=== PATIENT | male | born 1955 | race Caucasian/White ===

== ENCOUNTER → 2018-03-16 08:07 | Outpatient (CLI) | payer BC, SELFPAY ==
--- NOTE | 2018-03-16 08:11 | RAD_ITS ---
STUDY: X-RAY - PELVIS AND LEFT HIP REASON FOR EXAM: Male, 62 years old. Hip pain. TECHNIQUE: Radiological exam, hip, unilateral, with pelvis when performed; 2 or 3 views. COMPARISON: None. FINDINGS: There is a non-specific bowel gas pattern. Normal visualized soft tissue structures. Normal bilateral iliac wings, sacroiliac joints and visualized sacrum. Normal bilateral superior and inferior pubic rami. There are degenerative changes of the pubic symphysis with sclerosis. Normal bilateral ischial tuberosities. There are mild degenerative changes of the hips bilaterally. RAD/HIP, UNI W/ Pelvis 2-3 Views IMPRESSION: Degenerative changes. Electronically Signed: Karma Morrell MD at 23:25 EDT Tel , Service support ,
--- NOTE | 2018-03-16 08:11 | RAD_ITS ---
STUDY: X-RAY - LUMBAR SPINE REASON FOR EXAM: Male, 62 years old. LBP, no trauma TECHNIQUE: 5 view(s) of the lumbar spine were obtained. COMPARISON: None FINDINGS: Normal lumbar lordosis. There is multilevel endplate spondylosis of the lumbar vertebrae. There is multi-level degenerative disc disease with multi-level disc space narrowing. The soft tissue structures are unremarkable. RAD/L/S Spine Min 4 Views IMPRESSION: Degenerative changes of the spine. Electronically Signed: Ana Rosa Angeles MD at 10:07 EDT Tel , Service support ,
[2018-03-16 10:20] LABS: Absolute Neutrophil Count 3.2 X10^3/uL (2.0-7.7); Basophil# 0.02 X10^3/uL; Basophil% 0.4 % (0-1); Eosinophil# 0.13 X10^3/uL; Eosinophils% 2.3 % (0-5); Hematocrit 44.7 % (40-54); Hemoglobin 14.7 g/dl (13.0-16.5); Lymphocyte % 31.7 % (19-41); Mean Corp Hgb Conc 32.9 g/gl (32-36); Mean Corpuscular Hgb 28.2 pg (27.0-32.0); Mean Corpuscular Volume 85.6 fL (80-94); Monocyte# 0.56 X10^3/uL; Monocyte% 9.9 % (0-10); Neutrophil # 3.16 X10^3/uL (2.7-7.7); Neutrophil % 55.7 % (47-70); Platelet Count 227 K/mm3 (150-450); RBC Distribution Width SD 43.1 fl (35.1-43.9); Red Blood Count 5.22 M/mm3 (4.6-6.2); White Blood Count 5.7 K/mm3 (4.4-11.0)
[2018-03-16 10:22] LABS: POSITIVE COUNT NO; POSITIVE DIFFERENTIAL NO; POSITIVE MORPHOLOGY NO
[2018-03-16 10:25] LABS: Color, Urine Yellow (Yellow); Glucose, Dipstick Normal (Normal); Ketone-Dipstick Negative (Negative); Leukocyte Esterase-Dipstick 25 /ul (Negative); Nitrite-Dipstick Negative (Negative); Occult Blood-Urine 250 /ul (Negative); Protein-Dipstick 100 mg/dl (Negative); Specific Gravity, Urine 1.015 (1.002-1.030); Urine Bilirubin Dipstick Negative (Negative); Urine Clarity Sl. Cloudy (Clear); Urine Urobilinogen Normal (Normal)
[2018-03-16 10:31] LABS: Mucous, Urine 1+ /hpf (<or=2+); Red Blood Cells-Urine 25-50 SEEN /hpf (0-5); White Blood Cells 0-5 SEEN /hpf (0-5)
[2018-03-16 10:32] LABS: Bacteria 1+ /hpf (None Seen); Squamous Epithelial Cells - UA 0-5 SEEN /hpf (0-5)
[2018-03-16 10:35] LABS: AST(SGOT) 20 U/L (15-37); Alanine Aminotransfer ALT/SGPT 28 U/L (16-61); Albumin, Serum 3.6 g/dL (3.2-5.0); Alkaline Phosphatase 150 U/L (45-117); Anion Gap 8 (5-15); BUN 13 mg/dL (7-18); BUN/Creat Ratio 13.8 RATIO (10-20); Calcium,Total 8.6 mg/dL (8.5-10.1); Chloride 105 mmol/L (98-107); Cholesterol 145 mg/dL (200); Creatinine, Serum 0.94 mg/dL (0.70-1.30); EST Glomerular Filtration Rate 87 mL/min (>60); Est Glom Filt Rate - Afr Amer 105 mL/min (>60); Globulin 3.5 g/dL (2.2-4.2); Glucose 95 mg/dL (74-106); High Density Lipoprotein 37 mg/dL; PSA,Total - Annual Screen 1.19 ng/mL (0.00-4.00); Potassium 4.3 mmol/L (3.5-5.1); Protein, Total 7.1 g/dL (6.4-8.2); Sodium Level 137 mmol/L (136-145); Triglycerides 46 mg/dL; Very Low Density Lipoprotein 9 mg/dL (5-40)
== END ==
PROVIDERS: Family Provider Internal Medicine; PCP Internal Medicine; Referring Provider Internal Medicine; Visit Provider Internal Medicine
DX: Z00.00 Encounter for general adult medical examination without abnormal findings (principal); M25.552 Pain in left hip; M54.5 Low back pain; R35.0 Frequency of micturition
CPT/HCPCS: 36415; 72110; 73502; 80053; 80061; 81001; 84153; 85025; G0103

== ENCOUNTER → 2018-03-19 08:16 | Outpatient (CLI) | payer BC, SELFPAY | PROVIDERS: Family Provider Internal Medicine; PCP Internal Medicine; Referring Provider Internal Medicine; Visit Provider Internal Medicine | DX: R31.9 Hematuria, unspecified (principal) | CPT/HCPCS: 87086; 87088 ==

== ENCOUNTER 2018-04-03 07:15 | Day surgery (SDC) | payer BC, SELFPAY ==
[2018-04-03 07:35] VITALS: BP 114/86; PULSE 93; RESP 16; TEMP 36.8; O2SAT 100; BMI 24.7
--- NOTE | 2018-04-03 08:16 | H&P.OPEN ---
History of Present Illness Date of Admission: 04/03/18 The patient is a 62 year old M here for screening colonoscopy. The patient has never had a screening colonoscopy in the past. He reports that his mother had colon cancer in her mid 60s. He is having no abdominal pain or blood in his stool. Past Medical/Surgical History - Planned Operation Planned Operative Procedure/s: cscope open access Date of Operative Procedure: 04/03/18 Permit Signed: No S.O.S: No Is This Patient Having a Total Joint: No - Previous Hospitalizations/Surgeries HX Hospitalizations: No Any Problems With Anesthesia: No You/Your Family Experience Fever (Hyperthermia) With Anes: No Cholinesterase deficiency: No - Cardiovascular Hx Chest Pain within Last 2 months: No Hx of Irregular Heartbeat and/or Afib: No Hx Heart Attack: No Hx Congestive Heart Failure: No Hx Rheumatic Fever: No Hx Hypertension: No Hx Internal Defibrillator: No Hx Pacemaker: No Hx Cardiac Catheterization: No Hx Cardiac Surgery/Stents/Etc.: No Hx Stress Test: No HX Edema: No Hx Pain in Legs when Walking/Leg Cramps: Yes - cramps prn - Respiratory Chronic Cough: No HX of Shortness of Breath: No Hoarseness: No Hx Chronic Obstructive Pulmonary Disease (COPD): No Hx Asthma: No Hx Emphysema: No Hx Sleep Apnea: No Hx Oxygen Use at Home: No Hx Respiratory Tract Infection/Cold (presently): No Do You Snore Loudly (louder than talking or can be heard): No Do You Often Feel Tired/ Fatigued/ Sleepy Dring Daytime?: No Has Anyone Observed You Stop Breathing During Sleep?: No Result (for STOP score): Negative Hx Smoking: Yes - quit 25-30 yrs ago Smoking Status: Former smoker - Gastrointestinal Hx Gastroesophageal Reflux: No Hx Gastrointestinal Disorders: No Hx Gastrointestinal Bleed: No Hx Ulcer: Yes - at age 19 Hx Hiatal Hernia: No Difficulty Chewing/Swallowing: No Recent Onset of Swallowing Problems: No Special diet followed at home: No Hx Unplanned Weight Loss of 20#: No HX Unplanned Weight Gain of 20#: No - Neurological Hx Seizures: No HX Syncope/Blackout Spells/Unconsciousness: No Hx CVA/Stroke: No Hx Transient Ischemic Attacks (TIA): No Hx Multiple Sclerosis: No Hx Parkinson's Disease: No Hx Head/Neck Injury: No Hx Headaches: Yes Hx Back Injury/Pain: Yes - lower back and hip pain prn Recent Onset of Speech Difficulty: No Restless Legs: No Does patient have nerve stimulator: No Patient instructed to have device shut off: No Rep notified?: No - Blood Disorder Hx Leukemia: No Bleeding Tendencies: No Hx Deep Vein Thrombosis: No Hx High Cholesterol: No Blood Transmitted Disease: No Hx Hepatitis: No Hx Cirrhosis: No Hx Anemia: No Hx Blood Disorders: No - Genitourinary Hx Renal Disease: No - Musculoskeletal Hx Arthritis: No Hx Rheumatoid Arthritis: No Hx Gout: No Recent Onset of an Orthopedic Problem: No - Endocrine Hx Diabetes: No Thyroid Disease: No Hx Steroid Therapy: No - Psycho/Social Hx Substance Use: No Hx Alcohol Use: No Hx Anxiety: No Hx Depression: No Mental Illness: No Hx Dementia: No - Miscellaneous Hx Cancer: No Recent Exposure to Contagious Disease: No Active MRSA: No Hx of C-Diff: No Any Loose Teeth: No Allergies garlic Allergy (Severe, Verified 04/02/18 11:16) migrain soy Allergy (Severe, Verified 04/02/18 11:16) migraines food color Allergy (Uncoded 04/02/18 11:16) migrain - Discharge Is Pt Admitted From a Long Term, or a Assisted: No Who Could Help: After D/C, Where Do you Plan to Go: Return Home - Physical Exam General: Alert, Oriented x3, Cooperative Lungs: Normal air movement Cardiovascular: Regular rate, Regular Rhythm Abdomen: Soft, Non Tender, Non-Distended Vital Signs Temp Pulse Resp BP Pulse Ox 98.3 F 93 16 114/86 H 100 04/03/18 07:35 04/03/18 07:35 04/03/18 07:35 04/03/18 07:35 04/03/18 07:35 Oxygen Delivery Method Room Air Weight: 182 lb 12.211 oz Body Mass Index (BMI) 24.7 Assessment/Plan All Active Problems (Last Updated 03/13/18 @ 10:14 by Irma Holland) Impacted gavinjero (Acute) 62-year-old male for screening colonoscopy 1. I explained endoscopy in detail to the patient. I explained the risks including but not limited to stroke or heart attack with anesthesia, perforation of the GI tract, bleeding, infection. I explained that any of these could necessitate further emergency surgery. The patient understands and all questions were answered sufficiently. The patient wishes to proceed with procedure. Thom Hayward MD Pager: [facility] [address] [place] [address] [address] [place] [address] Office: Surgery Risks - Colonoscopy Risks Include but are not Limited To: Risks include but are not limited to: Bleeding, perforation requiring further surgery, inability to complete colonoscopy requiring barium enema.
--- NOTE | 2018-04-03 08:30 | COLBX_PTH ---
PATIENT: PAOLO ALVARADO Jr. LOC: EN U#:[id number] AGE/SX: 62/M ROOM: RE04/03/[address]: Dr. Thom Hayward MD : 1955 BED: DIS: 04/03/2018 SPEC #: [id number] RECD: 04/03/18 14:00 STATUS: JAZ CASTILLO #: [id number] MINH: 04/03/18 08:[address]: Thom Hayward DEPT: SURGICAL PATHOLOGY RECD BY: Moses Mosquera ENTERED: 04/03/18 15:00 SP TYPE: COLON BX ANKIT DR: Dr. Paige Faith MD Tissues: A - Sigmoid colon biopsy B - POLYP Procedures: Surgery Specimen Level IV HEADER OPERATION: Colonoscopy (MAC) PRE-OP DIAGNOSIS: Screening TISSUE SUBMITTED: A - Sigmoid polyp, B - Rectal polyp MICROSCOPIC DIAGNOSIS A. Sigmoid polyp, biopsy: Hyperplastic polyp. Fragments of fecal material. B. Rectal polyp, biopsy: Hyperplastic polyp. Fragments of fecal material. SJ:malcolm 04/06/18 MICROSCOPIC DESCRIPTION Slides are reviewed. GROSS DESCRIPTION A - Received in fixative is one container labeled with the patient's name and designated sigmoid polyp. The specimen consists of multiple irregular fragments of light paz soft tissue including fecal debris that in aggregate measure 1.8 x 1.2 x 0.1 cm. The specimen is totally submitted in one cassette. B - Received in fixative is one container labeled with the patient's name and designated rectal polyp. The specimen consists of multiple irregular fragments of light paz soft tissue that in aggregate measure 1.3 x 1 x 0.1 cm. The specimen is totally submitted in one cassette. / AM:malcolm 04/03/18 TC:4 [facility]: [id number] x2
[2018-04-03 09:10] VITALS: BP 114/68; BP 97/64; PULSE 78; RESP 16; TEMP 36; O2SAT 98
--- NOTE | 2018-04-03 09:12 | OP.ENDO_ITS ---
Patient Name: Yoseph Moe Procedure Date: 04/03/2018 8:24 AM Date of : 1955 Age: 62 Procedure: Colonoscopy Indications: Screening in patient at increased risk: Colorectal cancer in mother 60 or older Providers: Thom Hayward MD Referring MD: Thom Hayward MD Medicines: Monitored Anesthesia Care Patient Profile: This is a 62 year old male. Refer to note in patient chart for documentation of history and physical. Last Colonoscopy: none. The patient's first colonoscopy is today. Complications: No immediate complications. Estimated blood loss: Minimal. Procedure: Pre-Anesthesia Assessment: - Prior to the procedure, a History and Physical was performed, and patient medications and allergies were reviewed. The patient's tolerance of previous anesthesia was also reviewed. The risks and benefits of the procedure and the sedation options and risks were discussed with the patient. All questions were answered, and informed consent was obtained. Prior Anticoagulants: The patient has taken no previous anticoagulant or antiplatelet agents. After reviewing the risks and benefits, the patient was deemed in satisfactory condition to undergo the procedure. After I obtained informed consent, the scope was passed under direct vision. Throughout the procedure, the patient's blood pressure, pulse, and oxygen saturations were monitored continuously. The pediatric colonoscope was introduced through the anus and advanced to the cecum, identified by appendiceal orifice and ileocecal valve. The colonoscopy was performed without difficulty. The patient tolerated the procedure well. The quality of the bowel preparation was good. Scope In: 8:32:23 AM Scope Withdrawal Time 0 hours 14 minutes 24 seconds Scope Out: 9:05:07 AM Total Procedure Duration Time 0 hours 32 minutes 44 seconds Findings: Two polyps were found in the rectum and sigmoid colon. These polyps were removed with a hot snare. Resection and retrieval were complete. The exam was otherwise without abnormality on direct and retroflexion views. Impression: - Two polyps in the rectum and in the sigmoid colon, removed with a hot snare. Resected and retrieved. - The examination was otherwise normal on direct and retroflexion views. Recommendation: - Discharge patient to home. - Resume previous diet. - Continue present medications. - Await pathology results. - Physician's office will call you with pathology results and recommendations for when to repeat colonoscopy. - Repeat colonoscopy date to be determined after pending pathology results are reviewed for surveillance. Procedure Code(s): --- Professional --- 45986, PT, Colonoscopy, flexible; with removal of tumor(s), polyp(s), or other lesion(s) by snare technique Diagnosis Code(s): --- Professional --- Z80.0, Family history of malignant neoplasm of digestive organs K62.1, Rectal polyp D12.5, Benign neoplasm of sigmoid colon CPT copyright 2017 [employer]. All rights reserved. The codes documented in this report are preliminary and upon supervisor wool shearing review may be revised to meet current compliance requirements. Thom Hayward MD 04/03/2018 9:12:30 AM This report has been signed electronically. Number of Addenda: 0 Note Initiated On: 04/03/2018 8:24 AM
[2018-04-03 09:15] VITALS: BP 103/73; BP 114/68; PULSE 64; RESP 16; O2SAT 99
[2018-04-03 09:20] VITALS: BP 114/68; BP 119/85; PULSE 63; RESP 16; O2SAT 98
[2018-04-03 09:25] VITALS: BP 114/68; BP 116/81; PULSE 56; RESP 16; TEMP 36.5; O2SAT 100
--- NOTE | 2018-04-03 09:29 | CT_ITS ---
STUDY: CT ABDOMEN AND PELVIS WITH AND WITHOUT CONTRAST REASON FOR EXAM: Male, 62 years old. Hematuria. RADIATION DOSAGE (If Supplied By Facility): CTDIvol = ( 19.93 ) mGy, DLP = ( 2177.58 ) mGycm TECHNIQUE: Transaxial images were obtained from the dome of the diaphragm to the symphysis pubis without oral contrast. 100 ml of Isovue 300 contrast was administered. Sagittal and coronal images were reconstructed. Individualized dose optimization techniques were used for this CT. COMPARISON: None. FINDINGS: Minimal degree of linear atelectasis and/or scarring at the lung bases. The visualized portions of the heart are within normal limits. Normal liver. Normal gallbladder and extrahepatic biliary system. Normal spleen. Normal pancreas. Normal bilateral adrenal glands. Normal right kidney. Normal left kidney. Normal visualized stomach. Normal small intestine. Normal colon. The appendix is visualized and appears normal. There is scattered atherosclerotic calcification of the abdominal aorta, without a demonstrated aneurysm. Normal inferior vena cava. Normal retroperitoneum. Diffuse bladder wall thickening. There is a 3.1 cm x 2.8 cm enhancing mass arising from the lateral wall of the bladder on the left side. A neoplastic process should be ruled out. Normal abdominal wall. There are degenerative changes of the visualized lumbar spine. CT/CT Abd/Pelvis W/WO Contrast IMPRESSION: Diffuse bladder wall thickening. Enhancing mass arising from the lateral wall of the bladder on the left side. A neoplastic position. Correlation with cystoscopy is recommended. Electronically Signed: Alfonso Lane MD at 13:55 EDT Tel [phone], Service support ,
[2018-04-03 10:01] VITALS: BP 114/68
== END 2018-04-03 10:05 | disposition home or self-care (01) ==
LOC: EN 07:17 → AC 07:17
PROVIDERS: Family Provider Internal Medicine; PCP Internal Medicine; Referring Provider Surgery; Visit Provider Surgery
PROC: 0DJD8ZZ Inspection of Lower Intestinal Tract, Via Natural or Artificial Opening Endoscopic (ICD-10-PCS; CPT 45378; principal; 2018-04-03 08:25)
DX: Z12.11 Encounter for screening for malignant neoplasm of colon (principal); K63.5 Polyp of colon; K62.1 Rectal polyp; Z87.891 Personal history of nicotine dependence; Z80.0 Family history of malignant neoplasm of digestive organs
CPT/HCPCS: 45385; 74178; 88305; J7120; Q9967

== ENCOUNTER 2018-04-17 11:36 | Day surgery (SDC) | payer BC, SELFPAY ==
[2018-04-13 08:08] VITALS: BP 129/75; PULSE 61; RESP 16; TEMP 36.6; O2SAT 100; BMI 24.8
--- NOTE | 2018-04-13 08:31 | SDCEKG_ITS ---
Test Reason : Blood Pressure : / mmHG Vent. Rate : 059 BPM Atrial Rate : 059 BPM P-R Int : 162 ms QRS Dur : 080 ms QT Int : 394 ms P-R-T Axes : 065 018 059 degrees QTc Int : 390 ms Sinus bradycardia Otherwise normal ECG Confirmed by ABISAI BRIGGS, ANSLEY ([id number]), fashion editor LILLIANA MUNROE ([id number]) on 04/17/2018 2:39:09 PM Referred By: Gregory Ruano Confirmed By:ANSLEY BARONE MD
[2018-04-17] VITALS (7 sets, daily range): BP systolic 112–143; BP diastolic 80–96; PULSE 46–82; RESP 16; TEMP 36–36.8; O2SAT 99–100; BMI 24.8
--- NOTE | 2018-04-17 | IMM_PTH ---
PATIENT: PAOLO ALVARADO Jr. LOC: [facility] U#:[id number] AGE/SX: 62/M ROOM: RE04/17/[address]: Dr. Gregory Ruano MD : 1955 BED: DIS: 04/17/2018 SPEC #: [id number] RECD: 04/20/18 13:37 STATUS: SOUSyed REQ #: [id number] MINH: 04/17/18 00:[address]: Gregory Ruano DEPT: IMMUNOHISTOCHEMISTRY RECD BY: Francia Ritter ENTERED: 04/20/18 13:39 SP TYPE: IMMUNO OTHR DR: Dr. Paige Faith MD Tissues: Urinary bladder, NOS Procedures: Synapto (add) NAPSIN A (add) CD31 (add) CD56 (add) CHROMO (add) CK14 (add) CK20 (add) CK5-6 (add) CK7 (add) KI-67 (add) P53 (add) TTF1 (add) FACTOR VIII (add) Pankeratin (initial) P40 (add) CD44 (add) NSE (add) PHYSICIAN & INSTITUTION [place] [id number] SPECIMEN INFORMATION: Tissue Source: Urinary bladder tumor Clinical Info: Large bladder tumor Specimen Number: [id number] #2 CPT code: 85758, 23076 x16 METHODOLOGY: Deparaffinized sections of prefer/formalin-fixed tissue or PAP/DQ stained slides are incubated with monoclonal/polyclonal antibodies/oligonucleotide probes. Localization is made via biotin free immunoperoxidase method. Appropriate controls are performed and reacted as expected. Results on target cell population are indicated in the following table: RESULTS: ANTIBODY / CLONE RESULT AE1-3 (AE1/AE3/PCK26) positive, dim CK7 (OV-TL12/30) negative CK20 (KS20.8) negative anti-CD44 (SP37) negative P53 (DO-7) positive >95% Ki-67 (30-9) positive, high CD56 (123C3.D5) positive NSE Neuron Specific Enolase positive Chromo (LK2H10) positive Synapto (polyclonal) positive TTF-1 (8G7G3/1) negative Napsin A (Rabbit Polyclonal) negative CK14 (LL002) negative CK5-6 (D5 & 1684) negative P40 (BC28) negative Factor VIII (R Ag) negative CD31 (DONNELL/70A) negative These tests were developed and their performance characteristics determined by [facility]. They may not have been cleared or approved by the U.S. Food and Drug Administration. The FDA has determined that such clearance or approval is not necessary. INTERPRETATION: Urinary bladder tumor, transurethral resection: High-grade neuroendocrine carcinoma. AM:malcolm 04/21/18 Case has been reviewed in consultation with Dr. Lisa who concurs with the above diagnosis. IDC:SJ
--- NOTE | 2018-04-17 | BLB_PTH ---
PATIENT: PAOLO ALVARADO Jr. LOC: [facility] U#:[id number] AGE/SX: 62/M ROOM: RE04/17/[address]: Dr. Gregory Ruano MD : 1955 BED: DIS: 04/17/2018 SPEC #: [id number] RECD: 04/17/18 14:41 STATUS: JAZ RELatisha #: [id number] MINH: 04/17/18 00:[address]: Gregory Ruano DEPT: SURGICAL PATHOLOGY RECD BY: Rob Yip ENTERED: 04/17/18 14:41 SP TYPE: TURB OTHR DR: Dr. Paige Fatih MD Tissues: Urinary bladder, NOS Procedures: Surgery Specimen Level V HEADER OPERATION: Cysto, transurethral resection bladder, [employer] PRE-OP DIAGNOSIS: Large bladder tumor TISSUE SUBMITTED: Bladder tumor MICROSCOPIC DIAGNOSIS Urinary bladder tumor, transurethral resection: High grade neuroendocrine carcinoma. AM:malcolm 04/20/18 COMMENT Immunohistochemistry ([id number]) supports the above diagnosis. 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 Associated epithelial lesions - none identified Histologic grade - high grade Tumor configuration - solid and infiltrative Detrusor muscle - present and free of tumor. Lymph-Vascular invasion - not identified Microscopic extent of tumor - tumor invades subepithelial connective tissue (lamina propria). Additional pathologic findings - mild chronic inflammation and tumor necrosis. The above summary is in compliance with [employer] (CAP) Cancer Protocols Checklist and [place] Joint Committee on Cancer (AJCC), Staging Manual, 8th Ed. Case has been reviewed in consultation with Dr. Lisa who concurs with the above diagnosis. IDC:ARTURO MICROSCOPIC DESCRIPTION Slides are reviewed. GROSS DESCRIPTION Received in fixative is one container labeled with the patient's name and designated bladder tumor. The specimen consists of multiple irregular fragments of paz-brown soft tissue that in aggregate measure 5 x 3 x 1.5 cm. The entire specimen is submitted in seven cassettes. / SJ:malcolm 04/17/18 TC:0 CPT: 48857
[2018-04-17] MEDS: Ketorolac 15 MG/ML Vial IV (12:36)
--- NOTE | 2018-04-17 12:38 | DCINST_ITS ---
Discharge Diet: Light diet - advance as tolerated Discharge Activity: Return to Normal Activity Suture Line Care: Avoid Pulling/Pushing, Avoid Pinching/Bending Instructions: Treating Bladder Cancer: TUR (Transurethral Resection) Allergies/Adverse Reactions: Allergies garlic Allergy (Severe, Verified 04/13/18 08:08) migrain soy Allergy (Severe, Verified 04/13/18 08:08) migraines food color Allergy (Uncoded 04/02/18 11:16) migrain Medications to take at Discharge NK 04/02/18 Primary Care Physician: Paige Faith MD [Primary Care Provider] - Test Results: Test results from this visit will be discussed in further detail at your follow- up appointment, if applicable. Please Follow Up With: Gregory Ruano MD When: in 2 weeks, please call to make an appointment.
[2018-04-17] MEDS: Cefazolin 2 GM in 0.9% Normal Saline 100 ML IV (12:51)
--- NOTE | 2018-04-17 13:51 | OP.PCM_ITS ---
Report of Operation Date of Procedure: 04/17/18 Pre-Operative Diagnosis: Large bladder tumor in the patient's left lateral wall Post-Operative Diagnosis: Same Surgery/Procedure Performed:: Transurethral resection of a large bladder tumor and instillation of mitomycin-C Description of Surgical Findings:: 62-year-old male who developed gross hematuria and workup was done and he has a large bladder tumor from the left lateral wall the bladder today presents for transurethral resection of this tumor. Patient was taken back to the operating room after smooth induction of general anesthesia he was placed supine on the table then in dorsal lithotomy position, went into the bladder with a 24 Armenian noncontinuous flow resectoscope the entire length of the urethra is normal the prostate was normal the verumontanum was normal sphincter was normal prostate with no median lobe inside the bladder he had a large tumor coming from the left lateral wall the bladder and the left and right ureteral orifice were identified I then switched over the resectoscope I resected this tumor resected deep into the muscle on the left side obtained good hemostasis all the bladder tumor chips were Ellik out of the bladder and then I drained the bladder with a catheter in place 40 cc of mitomycin-C into the bladder for post resection instillation it was a complete resection and we had good deep tissue into the bladder muscle. Type of Anesthesia:: General Drains: none - Admit VTE Documentation VTE Present on Admission: No VTE Mechan Device Prophylaxis: SCD's VTE Pharm Prophylaxis ordered?: No
== END 2018-04-17 15:37 | disposition home or self-care (01) ==
LOC: SDC 11:36 → AC 11:37
PROVIDERS: Family Provider Internal Medicine; PCP Internal Medicine; Referring Provider Urology; Visit Provider Urology
PROC: 0TBB8ZZ Excision of Bladder, Via Natural or Artificial Opening Endoscopic (ICD-10-PCS; CPT 51720; principal; 2018-04-17 13:10)
DX: C7A.1 Malignant poorly differentiated neuroendocrine tumors (principal); R31.0 Gross hematuria; R35.0 Frequency of micturition; Z87.891 Personal history of nicotine dependence
CPT/HCPCS: 51720; 52240; 88307; 88341; 88342; 93005; J7120; C1769; J2405; J3490; J9280

== ENCOUNTER → 2018-05-18 09:22 | Outpatient (CLI) | payer BC, SELFPAY ==
[2018-04-17 11:47] VITALS: BMI 24.8
--- NOTE | 2018-05-18 08:00 | PET_ITS ---
EXAMINATION: FDG PET CT INDICATIONS: A 62-year-old male with reported history of carcinoma of the urinary bladder presenting for initial staging examination. COMPARISON EXAMINATION: CT of the abdomen and pelvis report dated 04/03/18. INDEX LESION SIZE SUV INTERPRETATION Lower pelvis posterior aspect of the urinary bladder wall 21.2 mm (frame 74) 11.9 Fulfills quantitative criteria for viable neoplasm TECHNIQUE: Following the intravenous administration of 16.3 mCi of F-18 deoxyglucose via the left antecubital fossa, multiplanar image acquisitions of the neck, chest, abdomen and pelvis to level of mid thigh, obtained at one hour post radiopharmaceutical administration contemporaneously interpreted with the current CT of the neck, chest, abdomen and pelvis to level of mid thigh, dated 05/18/[address] of the abdomen and pelvis report dated 04/03/18 reveal: SERUM GLUCOSE LEVEL: 71 mg/dl. HEIGHT: 72 inches. WEIGHT: 185 lbs. FINDINGS: 1. Focal increased glucose metabolism is defined in the left lower hemipelvis contiguous to the posterior aspect of the urinary bladder wall. The calculated maximum standard uptake value is 11.9. The maximal axial diameter of the corresponding metabolic, morphologic abnormality on review of CT of the pelvis dated 05/18/18 is approximately 21.2 mm (transverse). 2. Normal physiologic distribution of the radiopharmaceutical is apparent in the hepatic (2.9) and splenic parenchyma, both renal units and visualized intestinal tract. There is uniform distribution of the radiopharmaceutical concentration defined in the visualized cerebellar hemispheres and cerebral cortical structures.? Diffuse intestinal tract activity is noted throughout all four quadrants of the abdominal-pelvic retroperitoneum, mesentery consistent with normal physiologic distribution of the radiopharmaceutical. Prominent glucose metabolism is defined in the ascending and descending thoracic, as well as abdominal aorta. Pertinent CT findings are as follows. CHEST: Atherosclerotic calcification is defined in the thoracic aorta without evidence of dilatation, aneurysm formation. Coronary arterial calcification is observed. Bilateral subcentimeter axillary soft tissue densities are non-glucose avid. ABDOMEN AND PELVIS: Atherosclerotic calcification is defined in the abdominal aorta without evidence of dilatation, aneurysm formation. Pelvic arterial calcification is observed. A fat-containing left inguinal hernia is noted. Bilateral subcentimeter inguinal soft tissue densities are ametabolic. SKELETAL: Degenerative changes defined in the cervical, thoracic and lumbar spine demonstrate no evidence for glucose hypermetabolism. PET/PET/CT Tumor Base -Thigh Init IMPRESSION: 1. ABNORMAL EXAMINATION INDICATIVE OF MALIGNANT-VIABLE NEOPLASM. 2. Increased glucose concentration noted in the left lower posterior hemipelvis contiguous to the posterior urinary bladder wall fulfills quantitative criteria for viable neoplasm and presumably is passenger service representative of the site of the patient?s histologically confirmed primary urinary bladder malignancy. 3. Prominent glucose concentration observed in the ascending and descending thoracic, as well as abdominal aorta is commensurate with activated leukocytes associated with atherosclerotic plaque formation. (Vance et al, Clinical Nuclear Medicine 29:93, 2004). 4. No other quantitatively significant hypermetabolic abnormalities are noted. There is no definitive scintigraphic evidence of distant metastatic disease. Electronic Signature Jeff Jean-Baptiste D.O. Electronically Signed: Jeff Jean-Baptiste DO at 22:06 EST Tel , Service support ,
--- OUTSIDE RECORDS SUMMARY | 2018-08-19 21:36 | XMS RPT_ITS ---
:1955 Author Organization [place] Care Team Providers Name Role Phone DARRIUS BLEVINS Attending Unavailable DARRIUS BLEVINS Referring Unavailable RAMON YARBROUGH Attending Unavailable DARRIUS BLEVINS Referring Unavailable GAUTAM MENON Attending Unavailable RAMON YARBROUGH Referring Unavailable GAUTAM MENON Referring Unavailable Oleghe, Efewongbe Attending Unavailable Oleghe, Efewongbe Referring Unavailable Oleghe, Efewongbe Primary Care Unavailable Nurse, Surgery Attending Unavailable Olemarialuisae, Efewongbe Referring Unavailable Thom Hayward Attending Unavailable Thom Hayward Referring Unavailable Oleghe, Efewongbe Primary Care Unavailable Thom Hayward Consulting Unavailable Zeke, Jayson Attending Unavailable Gregory Ruano Referring Unavailable Rosemary Sylvester Attending Unavailable Rosemary Sylvester Referring Unavailable Oleghe, Efewongbe Primary Care Unavailable Thom Hayward Attending Unavailable Thom Hayward Referring Unavailable Oleghe, Efewongbe Primary Care Unavailable Oleghe, Efewongbe Attending Unavailable Oleghe, Efewongbe Referring Unavailable Oleghe, Efewongbe Primary Care Unavailable Oleghe, Efewongbe Attending Unavailable Marcel Amaya Referring Unavailable AldenGregory Attending Unavailable Oleghe, Efewongbe Primary Care Unavailable AldenGregory Attending Unavailable Alden, Jorge Luis Referring Unavailable Oleghe, Efewongbe Primary Care Unavailable PROBLEMS PROBLEMS DATE TYPE CONDITION / CODE ATTENDING STATUS SOURCE 06/16/2018 Active Other malignant TOMERGITA CEDILLOS [facility] neuroendocrine [facility] Main tumors / [place] C7A.8(ICD-10) Repository 06/16/2018 Active Malignant neoplasm DARRIUS BLEVINS Active [place] of bladder, [facility] Main unspecified / [place] C67.9(ICD-10) Repository 06/16/2018 Active Encounter for DARRIUS BLEVINS [facility] screening for other [facility] Main disorder / [place] Z13.89(ICD-10) Repository 04/22/2018 Unknown R00.1 - Bradycardia, Zeke, Jayson Active [place] unspecified / Community R00.1(ICD-10) Hospital Repository 04/08/2018 Unknown Z12.11 - Encounter Yesy Active [place] for screening for [facility] malignant neoplasm Hospital of colon / Repository Z12.11(ICD-10) 03/19/2018 Unknown R31.9 - Hematuria, Oleghe, Active [place] unspecified / [facility] R31.9(ICD-10) Hospital Repository 03/19/2018 Unknown Z00.00 - Encounter Oleghe, Active [place] for general adult [facility] without abnormal Repository findings / Z00.00(ICD-10) 03/13/2018 Unknown M25.552 - Pain in Olee, Active [place] left hip / [facility] M25.552(ICD-10) Hospital Repository 03/13/2018 Unknown M54.5 - Low back Oleghe, Active [place] pain / M54.5(ICD-10) [facility] Hospital Repository PROCEDURES PROCEDURES No Procedure Records FoundRESULTS RESULTS BASIC METABOLIC PANL Collected: 06/23/2018 Status: F Source: [place] 4:32 PM [facility] REPOSITORY TYPE CODE TESTS RESULT OUT OF REFERENCE UNITS RANGE LAB GLU 74-99 mg/dL Glucose 96 LAB BUN 9-24 mg/dL BUN 14 LAB CRET 0.73-1.22 mg/dL High Creatinine 1.28 LAB NA 136-144 mmol/L Sodium 138 LAB K 3.7-5.1 mmol/L Potassium 3.9 LAB CL 97-105 mmol/L Chloride 105 LAB CO2 22-30 mmol/L CO2 24 LAB AGAP 9-18 mmol/L Anion Gap 9 LAB CA 8.5-10.2 mg/dL Calcium, Total 9.4 LAB GFRAA eGFR- >60 Amer. LAB GFRNAA . eGFR-All Other Races 57 Result Comment: eGFR (Estimated GFR) Units of measure: mL/min/1.73 meters squared eGFR is derived from the reexpressed MDRD Study equation using the following parameters: serum creatinine, age, gender and race. The creatinine assay has been calibrated to be traceable to IDMS. An eGFR <60 mL/min/1.73m2 for >3 months is consistent with chronic kidney disease. Refer to KDOQI guidelines for clinical interpretation. In patients with unstable renal function, e.g. those with acute kidney injury, the eGFR may not accurately reflect actual GFR. HEPATIC FUNCTN PANEL Collected: 06/23/2018 Status: F Source: [place] 4:32 PM [facility] REPOSITORY TYPE CODE TESTS RESULT OUT OF REFERENCE UNITS RANGE LAB ALB 3.9-4.9 g/dL Albumin 4.3 LAB TBIL 0.2-1.3 mg/dL Bilirubin, Total 1.0 LAB CBIL <0.2 mg/dL High Bilirubin,Conjuga 0.2 sandra LAB ALKP 38-113 U/L Alkaline High Phosphatase 125 LAB AST 14-40 U/L AST 21 LAB ALT 10-54 U/L ALT 17 LAB TP 6.3-8.0 g/dL Protein, Total 6.7 [place] CBC AND DIFF Collected: 06/23/2018 Status: F Source: [place] 4:31 PM [facility] REPOSITORY TYPE CODE TESTS RESULT OUT OF REFERENCE UNITS RANGE LAB WWBC 3.70-11.00 k/uL [place] WBC 7.52 LAB WRBC 4.20-6.00 m/uL [place] RBC 4.86 LAB WHGB 13.0-17.0 g/dL [place] Hemoglobin 13.5 LAB WHCT 39.0-51.0 % [place] Hematocrit 40.5 LAB WMCV 80.0-100.0 fL [place] MCV 83.3 LAB WMCH 26.0-34.0 pg [place] MCH 27.8 LAB WMCHC 30.5-36.0 g/dL [place] MCHC 33.3 LAB WRDW 11.5-15.0 % [place] RDW 14.3 LAB WPLT 150-400 k/uL [place] Platelet Cnt 237 LAB WMPV 9.0-12.7 fL [place] MPV 9.4 Result Comment: Test performed at: [address] [place] [address]. LAB WNEUT % [place] Neut% 70.4 LAB WLYMP % [place] Lymp% 19.9 LAB WMONOC % [place] Hand% 8.6 LAB WEOS % [place] Eos% 0.7 LAB WBASO % [place] Baso% 0.4 LAB WANEUT 1.45-7.50 k/uL [place] Abs Neut 5.29 LAB WALYMP 1.00-4.00 k/uL [place] Abs Lymp 1.50 LAB WAMONO <0.87 k/uL [place] Abs Hand 0.65 LAB WAEOS <0.46 k/uL [place] Abs Eos 0.05 LAB WABASO <0.11 k/uL [place] Abs Baso 0.03 PROGRESS Observed: 06/19/2018 Status: COMPLETED Source: [place] 5:14 PM [facility] REPOSITORY HNO ID: [id number] Author: Ramon Yarbrough Service: (none) Author Type: Physician Type: Progress Notes Filed: 06/19/2018 5:25 PM Note Text: [facility] Department of Hematology AND Medical Oncology PATIENT NAME: [facility] NO: [id number] ATTENDING PHYSICIAN: Ramon Yarbrough MD DATE OF SERVICE: 06/19/[address] 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 My final recommendations will be communicated back to the requesting physician by way of shared Medical record or letter to requesting physician via US mail. HPI: Mr. Moe is a 62 yo man who presented with hematuria and was found to have a bladder mass on the left lateral wall. TURBT 04/17/2018 was read as showing high grade neuroendocrine carcinoma. Detrusor muscle was present and free of tumor. No lymphovascular invasion was seen. Tumor invaded the subepithelial connective tissue. A CT abd/pelvis 04/03/2018 showed a 3.1 cm x 2.8 cm enhancing mass in the left lateral baldder wall and no evidence of metastatic disease. A PET/CT 05/18/2108 showed no evidence of metastatic disease. He was advised by Dr. Blevins to undergo neoadjuvant chemotherapy and then radical cystectomy if there is no progression during the interval. His serum creatinine on 03/16/2018 was 0.94 with an EGFR of 87 cc/min. CMP was normal except or an alkaline phosphatase of 150 (normal 45-117). CBC was normal. IMPRESSION: Small cell carcinoma of the bladder. Standard treatment is 4 to 6 cycles of etoposide and cisplatin followed by either radical cystectomy or definitive radiation therapy. I told him I prefer cystectomy but that radiation was a reasonable alternative. PLAN: I am referring him to see Dr. Gautam Menon for chemotherapy at our [facility]. I discussed the patient with Dr. Menon. I will see him back in about three months for restaging scans. The decision about 4 vs 6 cycles will depend on how he tolerates chemotherapy and what we see on repeat scans. I met with him for over 45 minutes today and most of today's visit was spent providing education, counselling and support. Ramon Yarbrough M.D. Urologic Oncology Program Department of Hematology and Medical Oncology [facility] [phone] CNOVSP Observed: 06/19/2018 Status: COMPLETED Source: [place] 4:00 PM [facility] REPOSITORY Visit (SP) Office ([id number]) PAOLO MOE ([id number]) 1955 M Date Time Provider Department 06/19/18 4:00 PM RAMON YARBROUGH HEMCA4 During your visit today, we recorded the following information about you: Temperature Pulse Respiration Blood pressure 97.6 degrees 72/minute 20/minute 134/91 Weight Height 83.3 kg 1.783 m Jennifer Robles LPN, NIMISHA 06/19/2018 3:48 PM Signed Additional intake questions: Has the patient had nausea, vomiting, diarrhea, constipation, fatigue for > 1 week? None of the above Does the patient have a decreased appetite? No Does patient want to see a Daycare Provider? No (yes to any of above refer patient to schedulers for dietitian appointment) ) Does patient have any new or increased numbness or tingling of extremities? No Is patient interested in fertility information? NA Does patient need any prescription refills? No Electronically Signed By: NIMISHA Augustine MD 06/19/2018 4:45 PM Signed Please schedule CT RETURN CT SCHEDULING QUESTIONNAIRE Is the patient 60 or older or does the patient have diabetes or a history of kidney disease other than stones? Yes, a Creatinine level is required. WIll this be ready at time of exam? Yes - drawn at [facility] Hydration: No Is the associated diagnosis or reason for exam Peritoneal Dialysis, Prerenal Transplant, Triphasic Liver or AAA (Abdominal Aoritc Aneurism) or anything with Adrenals or does the order indicate Liver Exam, Kidney Exam or Urogram? No Is there any possibility the patient may be ? No Ramon Yarbrough MD 06/19/2018 5:25 PM Signed [facility] [place], R-35 Department of Hematology AND Medical Oncology PATIENT NAME: Paolo Moe [facility] NO: [id number] ATTENDING PHYSICIAN: Ramon Yarbrough MD DATE OF SERVICE: 06/19/[address] 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 My final recommendations will be communicated back to the requesting physician by way of shared Medical record or letter to requesting physician via US mail. HPI: Mr. Moe is a 62 yo man who presented with hematuria and was found to have a bladder mass on the left lateral wall. TURBT 04/17/2018 was read as showing high grade neuroendocrine carcinoma. Detrusor muscle was present and free of tumor. No lymphovascular invasion was seen. Tumor invaded the subepithelial connective tissue. A CT abd/pelvis 04/03/2018 showed a 3.1 cm x 2.8 cm enhancing mass in the left lateral baldder wall and no evidence of metastatic disease. A PET/CT 05/18/2108 showed no evidence of metastatic disease. He was advised by Dr. Blevins to undergo neoadjuvant chemotherapy and then radical cystectomy if there is no progression during the interval. His serum creatinine on 03/16/2018 was 0.94 with an EGFR of 87 cc/min. CMP was normal except or an alkaline phosphatase of 150 (normal 45- 117). CBC was normal. IMPRESSION: Small cell carcinoma of the bladder. Standard treatment is 4 to 6 cycles of etoposide and cisplatin followed by either radical cystectomy or definitive radiation therapy. I told him I prefer cystectomy but that radiation was a reasonable alternative. PLAN: I am referring him to see Dr. Gautam Menon for chemotherapy at our [facility]. I discussed the patient with Dr. Menon. I will see him back in about three months for restaging scans. The decision about 4 vs 6 cycles will depend on how he tolerates chemotherapy and what we see on repeat scans. I met with him for over 45 minutes today and most of today's visit was spent providing education, counselling and support. Ramon Yarbrough M.D. Urologic Oncology Program Department of Hematology and Medical Oncology [facility] [phone] Referring Provider: DARRIUS BLEVINS [[id number]] Allergies As of Date: 06/19/2018 Noted Allergy Reaction SOY 04/13/2018 5 - Intolerance Food Color Brown (BROWN FOOD COL*04/02/2018 5 - Intolerance GARLIC OIL 06/16/2018 5 - Intolerance Date Reviewed: 06/19/2018 Reviewed by: Jennifer (Nimisha) NIMISHA Robles - Fully Assessed Reason for Visit: Consult [173] Visit Diagnoses:Malignant neoplasm of overlapping sites of bladder (HCC) [C67.8] Screening for nephropathy [Z13.89] Order(s):CHEMO SCHEDULING [0141112] Order #: [id number] COMP METABOLIC PANEL [SQCMP] Order #: [id number] FUTURE CBC + DIFF [SQCBCDIF] Order #: [id number] FUTURE CONSULT TO HEMATOLOGY/ONCOLOGY [19990602] Order #: [id number]: 1 CT ABD/PEL W IVCON [[id number]] Order #: [id number] FUTURE CT CHEST W IVCON [[id number]] Order #: [id number] FUTURE iv contrast (will be provided with radiology test)CT Chest ABD/PEL-Inject, intravenously, once for 1 dose.No IV access, insert saline lock prior to the beginning of sedation, infusion, injection of imaging exam. Discontinue saline lock post exam. If Pt. has a central line or IVAD, may access for administration according to line specific nursing protocol. Once exam is complete flush line and de-access according to line specific nursing protocol in the CT contrast administration guidelines link.Disp: 1 EachRfl: 0 enteric contrast (will be provided with radiology test)For CT CHESTABD/PEL W IVCON Routine order Administer, As Directed One Time Only, via Oral, Rectal, both Oral and Rectal, Enteric Tube, Stoma or Indwelling Catheter, Enteric Contrast as designated per enteric contrast guidelinesDisp: 1 EachRfl: 0 CREATININE BLD [SQCRET] Order #: [id number] FUTURE Disposition: Return in 13 weeks (on 09/18/2018) for restaging scans. Needs appt wiht Dr. Menon in [facility]. Follow-up and Disposition History Recorded Prescriptions as of 06/19/2018 Sig: IV CONTRAST (RADIOLOGY PROCED* CT Chest ABD/PEL-Inject, intr* ENTERIC CONTRAST (RADIOLOGY P* For CT CHESTABD/PEL W IVCON R* Problem List As Of Date 06/19/2018 Noted Resolved Malignant neoplasm of urinary bladder (HCC) [C6*INVALID FOR* Neuroendocrine carcinoma (HCC) [C7A.8] INVALID FOR* Other instructions from your clinician: Please schedule CT RETURN CT SCHEDULING QUESTIONNAIRE Is the patient 60 or older or does the patient have diabetes or a history of kidney disease other than stones? Yes, a Creatinine level is required. WIll this be ready at time of exam? Yes - drawn at [facility] Hydration: No Is the associated diagnosis or reason for exam Peritoneal Dialysis, Prerenal Transplant, Triphasic Liver or AAA (Abdominal Aoritc Aneurism) or anything with Adrenals or does the order indicate Liver Exam, Kidney Exam or Urogram? No Is there any possibility the patient may be ? No Visit Notes: >> Jennifer Robles LPN FriJun 19, 2018 3:44 PM Status: Signed Additional intake questions: Has the patient had nausea, vomiting, diarrhea, constipation, fatigue for > 1 week? None of the above Does the patient have a decreased appetite? No Does patient want to see a Daycare Provider? No (yes to any of above refer patient to schedulers for dietitian appointment) ) Does patient have any new or increased numbness or tingling of extremities? No Is patient interested in fertility information? NA Does patient need any prescription refills? No Electronically Signed By: Jennifer Robles LPN Encounter Status:Closed by RAMON YARBROUGH MD on 06/19/18 URINALYSIS Collected: 06/16/2018 Status: F Source: [place] 8:38 AM [facility] REPOSITORY TYPE CODE TESTS RESULT OUT OF REFERENCE UNITS RANGE LAB UCOL Yellow Color Yellow LAB [facility] Clear Clarity Clear LAB UGLUC Negative mg/dL Glucose, Urine Negative LAB UBIL Negative Bilirubin, Urine Negative LAB UKET Negative Ketones, Urine Negative LAB USPG 1.005-1.030 Specific Ayr, Ur 1.010 LAB UHGB Negative Hemoglobin/Blood, Negative Ur LAB UPH 4.5-8.0 pH 5.0 LAB UPROT Negative mg/dL Protein, Urine Negative LAB UUROB Normal Urobilinogen Normal LAB UNITR Negative Nitrites Negative LAB ULKEST Negative Leukest Negative LAB UCOM Comments SEE COMMENT Result Comment: Microscopic not warranted LAB UMCOM Urine SEE Rah Comment COMMENT Result Comment: N/A Performed By: #### UA #### [facility] [address] [place], [place] [address] PET/CT TUMOR BASE Observed: 05/18/2018 Status: F Source: [place] -[place]IGH IN[place] 7:05 AM REPOSITORY [facility] Imaging Services [address] [place] [address] PET/CT Tumor Base -Thigh Init MR#: [id number] Acct: [id number] Name: PAOLO MOE #: [id number] : 1955 M 62 From: Jeff Jean-Baptiste DO PCP: Paige Faith MD Status: REG CLI Study: PET/CT Tumor Base -Thigh Init Date of Exam: 05/18/18 Exam# [id number] Ordering Dr: Gregory Ruano MD EXAMINATION: FDG PET CT INDICATIONS: A 62-year-old male with reported history of carcinoma of the urinary bladder presenting for initial staging examination. COMPARISON EXAMINATION: CT of the abdomen and pelvis report dated 04/03/18. INDEX LESION SIZE SUV INTERPRETATION Lower pelvis posterior aspect of the urinary bladder wall 21.2 mm (frame 74) 11.9 Fulfills quantitative criteria for viable neoplasm TECHNIQUE: Following the intravenous administration of 16.3 mCi of F-18 deoxyglucose via the left antecubital fossa, multiplanar image acquisitions of the neck, chest, abdomen and pelvis to level of mid thigh, obtained at one hour post radiopharmaceutical administration contemporaneously interpreted with the current CT of the neck, chest, abdomen and pelvis to level of mid thigh, dated 05/18/[address] of the abdomen and pelvis report dated 04/03/18 reveal: SERUM GLUCOSE LEVEL: 71 mg/dl. HEIGHT: 72 inches. WEIGHT: 185 lbs. FINDINGS: 1. Focal increased glucose metabolism is defined in the left lower hemipelvis contiguous to the posterior aspect of the urinary bladder wall. The calculated maximum standard uptake value is 11.9. The maximal axial diameter of the corresponding metabolic, morphologic abnormality on review of CT of the pelvis dated 05/18/18 is approximately 21.2 mm (transverse). 2. Normal physiologic distribution of the radiopharmaceutical is apparent in the hepatic (2.9) and splenic parenchyma, both renal units and visualized intestinal tract. There is uniform distribution of the radiopharmaceutical concentration defined in the visualized cerebellar hemispheres and cerebral cortical structures.? Diffuse intestinal tract activity is noted throughout all four quadrants of the abdominal-pelvic retroperitoneum, mesentery consistent with normal physiologic distribution of the radiopharmaceutical. Prominent glucose metabolism is defined in the ascending and descending thoracic, as well as abdominal aorta. Pertinent CT findings are as follows. CHEST: Atherosclerotic calcification is defined in the thoracic aorta without evidence of dilatation, aneurysm formation. Coronary arterial calcification is observed. Bilateral subcentimeter axillary soft tissue densities are non-glucose avid. ABDOMEN AND PELVIS: Atherosclerotic calcification is defined in the abdominal aorta without evidence of dilatation, aneurysm formation. Pelvic arterial calcification is observed. A fat-containing left inguinal hernia is noted. Bilateral subcentimeter inguinal soft tissue densities are ametabolic. SKELETAL: Degenerative changes defined in the cervical, thoracic and lumbar spine demonstrate no evidence for glucose hypermetabolism. PET/PET/CT Tumor Base -Thigh Init IMPRESSION: 1. ABNORMAL EXAMINATION INDICATIVE OF MALIGNANT-VIABLE NEOPLASM. 2. Increased glucose concentration noted in the left lower posterior hemipelvis contiguous to the posterior urinary bladder wall fulfills quantitative criteria for viable neoplasm and presumably is senior account representative of the site of the patient?s histologically confirmed primary urinary bladder malignancy. 3. Prominent glucose concentration observed in the ascending and descending thoracic, as well as abdominal aorta is commensurate with activated leukocytes associated with atherosclerotic plaque formation. (Vance et al, Clinical Nuclear Medicine 29:93, 2004). 4. No other quantitatively significant hypermetabolic abnormalities are noted. There is no definitive scintigraphic evidence of distant metastatic disease. Electronic Signature Jeff Jean-Baptiste D.O. Electronically Signed: Jeff Jean-Baptiste DO at 22:06 EST Tel , Service support , CC: Paige Faith MD; Gregory Ruano MD Telephonic Rn: Signed PT-PET 1PETCT_WHOLEBODY Observed: 05/18/2018 Status: F Source: [place] (AD[place]) [place] 12:00 AM [facility] REPOSITORY Images were obtained outside of [facility] [id number] PT-PET 1PETCT_WHOLEBODY Observed: 05/18/2018 Status: F Source: [place] (ADULT) [place] 12:00 AM [facility] REPOSITORY Images were obtained outside of [facility] [id number] 12 LEAD ELECTROCARDIOGRAM Observed: 04/17/2018 Status: F Source: [place] 2:39 PM REPOSITORY [facility] Cardiovascular Services [address] [place] [address] [place] [address] EKG - [facility] 04/13/18 0825 MR#: [id number] Acct: [id number] Name: PAOLO MOE Rep #: [id number] : 1955 62 From: Jayson Alanis MD Attending Dr: Alden BRIGGS,Gregory So Status: REG [facility] Ordering Dr: Bernardino Green MD Date: 04/13/18 Location: Sex: M C Admitted: Test Reason : Blood Pressure : / mmHG Vent. Rate : 059 BPM Atrial Rate : 059 BPM P-R Int : 162 ms QRS Dur : 080 ms QT Int : 394 ms P-R-T Axes : 065 018 059 degrees QTc Int : 390 ms Sinus bradycardia Otherwise normal ECG Confirmed by ZEKE BRIGGS, JAYSON ([id number]), state editor LILLIANA MUNROE ([id number]) on 04/17/2018 2:39:09 PM Referred By: Gregory Ruano Confirmed By:JAYSON ALANIS MD 04/17/18 1439 Date Jayson Alanis MD CC: Bernardino Green MD; Paige Faith MD; Gregory Ruano MD Date Dictated: 04/13/18824 Date Transcribed: 04/13/18824 Telephonic Rn: Signed OPERATIVE REPORT Observed: 04/17/2018 Status: F Source: [place] 1:51 PM REPOSITORY [facility] Medical Records Department [address] [place] [address] Operative Report 04/17/18 1348 MR#: [id number] Acct: [id number] Name: PAOLO MOE Rep #: [id number] : 1955 62 From: Gregory Ruano MD PCP: Paige Faith MD Status: REG [facility] Y Location: [facility]05-02 Report of Operation Date of Procedure: 04/17/18 Pre-Operative Diagnosis: Large bladder tumor in the patient's left lateral wall Post-Operative Diagnosis: Same Surgery/Procedure Performed:: Transurethral resection of a large bladder tumor and instillation of mitomycin-C Description of Surgical Findings:: 62-year-old male who developed gross hematuria and workup was done and he has a large bladder tumor from the left lateral wall the bladder today presents for transurethral resection of this tumor. Patient was taken back to the operating room after smooth induction of general anesthesia he was placed supine on the table then in dorsal lithotomy position, went into the bladder with a 24 Amharic noncontinuous flow resectoscope the entire length of the urethra is normal the prostate was normal the verumontanum was normal sphincter was normal prostate with no median lobe inside the bladder he had a large tumor coming from the left lateral wall the bladder and the left and right ureteral orifice were identified I then switched over the resectoscope I resected this tumor resected deep into the muscle on the left side obtained good hemostasis all the bladder tumor chips were Ellik out of the bladder and then I drained the bladder with a catheter in place 40 cc of mitomycin-C into the bladder for post resection instillation it was a complete resection and we had good deep tissue into the bladder muscle. Type of Anesthesia:: General Drains: none - Admit VTE Documentation VTE Present on Admission: No VTE Mechan Device Prophylaxis: SCD's VTE Pharm Prophylaxis ordered?: No 04/17/18 1351 <Electronically signed by Gregory Ruano MD> Date Gregory Ruano MD CC: Paige Faith MD; Gregory Ruano MD Signed DISCHARGE INSTRUCTION Observed: 04/17/2018 Status: F Source: [place] 12:38 PM REPOSITORY [facility] Medical Records Department [address] [place] [address] Instructions for Home/Discharge Instructions 04/17/18 1238 MR#: [id number] Acct: [id number] Name: PAOLO MOE Rep #: [id number] : 1955 62 From: Gregory Ruano MD PCP: Paige Faith MD Status: REG SDC Discharge Diet: Light diet - advance as tolerated Discharge Activity: Return to Normal Activity Suture Line Care: Avoid Pulling/Pushing, Avoid Pinching/Bending Instructions: Treating Bladder Cancer: TUR (Transurethral Resection) Allergies/Adverse Reactions: Allergies garlic Allergy (Severe, Verified 04/13/18 08:08) migrain soy Allergy (Severe, Verified 04/13/18 08:08) migraines food color Allergy (Uncoded 04/02/18 11:16) migrain Medications to take at Discharge NK 04/02/18 Primary Care Physician: Paige Faith MD [Primary Care Provider] - Test Results: Test results from this visit will be discussed in further detail at your follow-up appointment, if applicable. Please Follow Up With: Gregory Ruano MD When: in 2 weeks, please call to make an appointment. 04/17/18 1238 <Electronically signed by Gregory Ruano MD> Date Gregory Ruano MD CC: Paige Faith MD BLADDER TUR Observed: 04/17/2018 Status: F Source: [place] 12:00 AM REPOSITORY Patient: PAOLO MOE : 1955 (62/M) Acct Num: [id number] Phys: Alden BRIGGS,Gregory So Unit Num: [id number] Loc: [facility] Specimen: [id number] Received: 04/17/18 - 1441 Spec Type: TURB TISSUES 1 TISSUES: Urinary bladder, NOS COMMENT Immunohistochemistry ([id number]) supports the above diagnosis. 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 Associated epithelial lesions - none identified Histologic grade - high grade Tumor configuration - solid and infiltrative Detrusor muscle - present and free of tumor. Lymph-Vascular invasion - not identified Microscopic extent of tumor - tumor invades subepithelial connective tissue ( lamina propria). Additional pathologic findings - mild chronic inflammation and tumor necrosis. The above summary is in compliance with [employer] [place] [employer] (CAP) Cancer Protocols Checklist and [place] Joint Committee on Cancer (AJCC), Staging Manual, 8th Ed. Case has been reviewed in consultation with Dr. Lisa who concurs with the above diagnosis. IDC:SJ GROSS DESCRIPTION Received in fixative is one container labeled with the patient's name and designated bladder tumor. The specimen consists of multiple irregular fragments of paz-brown soft tissue that in aggregate measure 5 x 3 x 1.5 cm. The entire specimen is submitted in seven cassettes. / SJ:malcolm 04/17/18 TC:0 CPT: 09828 HEADER OPERATION: Cysto, transurethral resection bladder, Olymp[employer] PRE-OP DIAGNOSIS: Large bladder tumor TISSUE SUBMITTED: Bladder tumor MICROSCOPIC DESCRIPTION Slides are reviewed. MICROSCOPIC DIAGNOSIS Urinary bladder tumor, transurethral resection: High grade neuroendocrine carcinoma. AM:malcolm 04/20/18 Signed Marcel Emanuel 04/21/18 <signature on file> Performed By: #### PBLB #### [facility] [address] [facility]. [place], [place], [address] IMMUNOHISTOCHEMISTRY Observed: 04/17/2018 Status: F Source: [place] 12:00 AM REPOSITORY Patient: PAOLO MOE : 1955 (62/M) Acct Num: [id number] Phys: Alden BRIGGS,Jorge Luis Unit Num: [id number] Loc: [facility] Specimen: [id number] Received: 04/20/18 - 1337 Spec Type: IMMUNO TISSUES 1 TISSUES: Urinary bladder, NOS SPECIMEN INFORMATION: Tissue Source: Urinary bladder tumor Clinical Info: Large bladder tumor Specimen Number: [id number] #2 CPT code: 59982, 81179 x16 METHODOLOGY: Deparaffinized sections of prefer/formalin-fixed tissue or PAP/DQ stained slides are incubated with monoclonal/polyclonal antibodies/oligonucleotide probes. Localization is made via biotin free immunoperoxidase method. Appropriate controls are performed and reacted as expected. Results on target cell population are indicated in the following table: RESULTS: ANTIBODY / CLONE RESULT AE1-3 (AE1/AE3/PCK26) positive, dim CK7 (OV-TL12/30) negative CK20 (KS20.8) negative anti-CD44 (SP37) negative P53 (DO-7) positive >95% Ki-67 (30-9) positive, high CD56 (123C3.D5) positive NSE Neuron Specific Enolase positive Chromo (LK2H10) positive Synapto (polyclonal) positive TTF-1 (8G7G3/1) negative Napsin A (Rabbit Polyclonal) negative CK14 (LL002) negative CK5-6 (D5 AND 1684) negative P40 (BC28) negative Factor VIII (R Ag) negative CD31 (DONNELL/70A) negative These tests were developed and their performance characteristics determined by [facility]. They may not have been cleared or approved by the U.S. Food and Drug Administration. The FDA has determined that such clearance or approval is not necessary. INTERPRETATION: Urinary bladder tumor, transurethral resection: High-grade neuroendocrine carcinoma. AM:rg 04/21/18 Case has been reviewed in consultation with Dr. Lsia who concurs with the above diagnosis. IDC: PHYSICIAN AND INSTITUTION [place] [id number] Signed Marcel Emanuel 04/21/18 <signature on file> Performed By: #### PIMM #### [facility] [address] [place] [address], [id number] SURGERY VISIT REPORT Observed: 04/10/2018 Status: F Source: [place] 10:49 AM REPOSITORY [facility] [address] [place] [address] [address] [place] [address] OFFICE VISIT Date of Service: MR#: [id number] Acct: [id number] Name: PAOLO MOE Rep #: [id number] : 1955 Provider: Thom Hayward MD Age/Sex: 62/M Location: [facility] Status: Signed Intake Intake Allergies garlic Allergy (Severe, Verified 04/02/18 11:16) migrain soy Allergy (Severe, Verified 04/02/18 11:16) migraines food color Allergy (Uncoded 04/02/18 11:16) migrain Medications NK 04/02/18 [History Confirmed 04/02/18] Visit Reasons: Post-Op follow-Up (gastro) Assessment AND Plan Problems 1. Gastroenterology follow-up encounter Z09 Plan I discussed the patient's pathology with him. The patient had 2 hyperplastic polyps and needs to return in 5 years for surveillance colonoscopy due to family history of colon cancer Thom Hayward MD Pager: [facility] [address] [place] [address], [address] [place] [address] Office: Coding Level of Care Code No Charge Diagnoses Gastroenterology follow-up encounter Z09 04/10/18 1049 <Electronically signed by Thom Hayward MD> Date [facility] Signature: Date (if applicable) CC: Paige Faith MD CT ABD/PELVIS W/WO Observed: 04/03/2018 Status: F Source: [place] CONTRAST 9:29 AM REPOSITORY [facility] Imaging Services [address] [place] [address] Abd/Pelvis W/WO Contrast MR#: [id number] Acct: [id number] Name: PAOLO MOE Rep #: [id number] : 1955 M 62 From: Alfonso Lane MD PCP: Paige Faith MD Status: [facility] Study: CT Abd/Pelvis W/WO Contrast Date of Exam: 04/03/18 Exam# [id number] Ordering Dr: Rosemary Sylvester FIELD ASSOCIATE-C STUDY: CT ABDOMEN AND PELVIS WITH AND WITHOUT CONTRAST REASON FOR EXAM: Male, 62 years old. Hematuria. RADIATION DOSAGE (If Supplied By Facility): CTDIvol = ( 19.93 ) mGy, DLP = ( 2177.58 ) mGycm TECHNIQUE: Transaxial images were obtained from the dome of the diaphragm to the symphysis pubis without oral contrast. 100 ml of Isovue 300 contrast was administered. Sagittal and coronal images were reconstructed. Individualized dose optimization techniques were used for this CT. COMPARISON: None. FINDINGS: Minimal degree of linear atelectasis and/or scarring at the lung bases. The visualized portions of the heart are within normal limits. Normal liver. Normal gallbladder and extrahepatic biliary system. Normal spleen. Normal pancreas. Normal bilateral adrenal glands. Normal right kidney. Normal left kidney. Normal visualized stomach. Normal small intestine. Normal colon. The appendix is visualized and appears normal. There is scattered atherosclerotic calcification of the abdominal aorta, without a demonstrated aneurysm. Normal inferior vena cava. Normal retroperitoneum. Diffuse bladder wall thickening. There is a 3.1 cm x 2.8 cm enhancing mass arising from the lateral wall of the bladder on the left side. A neoplastic process should be ruled out. Normal abdominal wall. There are degenerative changes of the visualized lumbar spine. CT/CT Abd/Pelvis W/WO Contrast IMPRESSION: Diffuse bladder wall thickening. Enhancing mass arising from the lateral wall of the bladder on the left side. A neoplastic position. Correlation with cystoscopy is recommended. Electronically Signed: Alfonso Lane MD at 13:55 EDT Tel [phone], Service support , CC: Paige Faith MD; Rosemary Sylvester NP Telephonic Rn: Signed OPERATIVE REPORT - Observed: 04/03/2018 Status: F Source: [place] ENDOSCOPY 9:12 AM REPOSITORY [facility] Medical Records Department [address] [place] [address] Operative Report - Endoscopy MR#: [id number] Acct: [id number] Name: PAOLO MOE Ines Rep #: [id number] : 1955 62 From: Thom Hayward MD PCP: Paige Faith MD Status: REG [facility] Patient Name: Paolo Moe Procedure Date: 04/03/2018 8:24 AM Date of : 1955 Age: 62 Procedure: Colonoscopy Indications: Screening in patient at increased risk: Colorectal cancer in mother 60 or older Providers: Thom Hayward MD Referring MD: Thom Hayward MD Medicines: Monitored Anesthesia Care Patient Profile: This is a 62 year old male. Refer to note in patient chart for documentation of history and physical. Last Colonoscopy: none. The patient's first colonoscopy is today. Complications: No immediate complications. Estimated blood loss: Minimal. Procedure: Pre-Anesthesia Assessment: - Prior to the procedure, a History and Physical was performed, and patient medications and allergies were reviewed. The patient's tolerance of previous anesthesia was also reviewed. The risks and benefits of the procedure and the sedation options and risks were discussed with the patient. All questions were answered, and informed consent was obtained. Prior Anticoagulants: The patient has taken no previous anticoagulant or antiplatelet agents. After reviewing the risks and benefits, the patient was deemed in satisfactory condition to undergo the procedure. After I obtained informed consent, the scope was passed under direct vision. Throughout the procedure, the patient's blood pressure, pulse, and oxygen saturations were monitored continuously. The pediatric colonoscope was introduced through the anus and advanced to the cecum, identified by appendiceal orifice and ileocecal valve. The colonoscopy was performed without difficulty. The patient tolerated the procedure well. The quality of the bowel preparation was good. Scope In: 8:32:23 AM Scope Withdrawal Time 0 hours 14 minutes 24 seconds Scope Out: 9:05:07 AM Total Procedure Duration Time 0 hours 32 minutes 44 seconds Findings: Two polyps were found in the rectum and sigmoid colon. These polyps were removed with a hot snare. Resection and retrieval were complete. The exam was otherwise without abnormality on direct and retroflexion views. Impression: - Two polyps in the rectum and in the sigmoid colon, removed with a hot snare. Resected and retrieved. - The examination was otherwise normal on direct and retroflexion views. Recommendation: - Discharge patient to home. - Resume previous diet. - Continue present medications. - Await pathology results. - Physician's office will call you with pathology results and recommendations for when to repeat colonoscopy. - Repeat colonoscopy date to be determined after pending pathology results are reviewed for surveillance. Procedure Code(s): --- Professional --- 43262, PT, Colonoscopy, flexible; with removal of tumor(s), polyp(s), or other lesion(s) by snare technique Diagnosis Code(s): --- Professional --- Z80.0, Family history of malignant neoplasm of digestive organs K62.1, Rectal polyp D12.5, Benign neoplasm of sigmoid colon CPT copyright 2017 [place] [employer]. All rights reserved. The codes documented in this report are preliminary and upon train station agent review may be revised to meet current compliance requirements. Thom Hayward MD 04/03/2018 9:12:30 AM This report has been signed electronically. Number of Addenda: 0 Note Initiated On: 04/03/2018 8:24 AM 04/03/18911 Date Thom Hayward MD Cosigner Signature: Date (if indicated) CC: Thom Hayward MD; Paige Faith MD Date Dictated: 04/03/18823 Date Transcribed: Telephonic Rn: ADELAIDE Signed COLON BIOPSY (CHOOSE Observed: 04/03/2018 Status: F Source: [facility]) 8:30 AM REPOSITORY Patient: PAOLO MOE : 1955 (62/M) Acct Num: [id number] Phys: Yesy BRIGGS,Thom Unit Num: [id number] Loc: [place] Specimen: [id number] Received: 04/03/181399 Spec Type: COLON BX TISSUES 1 TISSUES: A. Sigmoid colon biopsy B. POLYP GROSS DESCRIPTION A - Received in fixative is one container labeled with the patient's name and designated sigmoid polyp. The specimen consists of multiple irregular fragments of light paz soft tissue including fecal debris that in aggregate measure 1.8 x 1.2 x 0.1 cm. The specimen is totally submitted in one cassette. B - Received in fixative is one container labeled with the patient's name and designated rectal polyp. The specimen consists of multiple irregular fragments of light paz soft tissue that in aggregate measure 1.3 x 1 x 0.1 cm. The specimen is totally submitted in one cassette. / AM:malcolm 04/03/18 TC:4 CPT: 81816 x2 HEADER OPERATION: Colonoscopy (MAC) PRE-OP DIAGNOSIS: Screening TISSUE SUBMITTED: A - Sigmoid polyp, B - Rectal polyp MICROSCOPIC DESCRIPTION Slides are reviewed. MICROSCOPIC DIAGNOSIS A. Sigmoid polyp, biopsy: Hyperplastic polyp. Fragments of fecal material. B. Rectal polyp, biopsy: Hyperplastic polyp. Fragments of fecal material. SJ:malcolm 04/06/18 Signed Aayush Lisa 04/06/18 <signature on file> Performed By: #### PCOLBX #### [facility] [address] [facility] [place], [address] HISTORY AND PHYSICAL Observed: 04/03/2018 Status: F Source: [place] EXAM 8:17 AM REPOSITORY [facility] Medical Records Department [address] [place] [address] History and Physical 04/03/18 0816 MR#: [id number] Acct: [id number] Name: PAOLO MOE Rep #: [id number] : 1955 62 From: Thom Hayward MD PCP: Paige Faith MD Status: REG SD Y Location: [place] [address] History of Present Illness Date of Admission: 04/03/18 The patient is a 62 year old M here for screening colonoscopy. The patient has never had a screening colonoscopy in the past. He reports that his mother had colon cancer in her mid 60s. He is having no abdominal pain or blood in his stool. Past Medical/Surgical History - Planned Operation Planned Operative Procedure/s: cscope open access Date of Operative Procedure: 04/03/18 Permit Signed: No S.O.S: No Is This Patient Having a Total Joint: No - Previous Hospitalizations/Surgeries HX Hospitalizations: No Any Problems With Anesthesia: No You/Your Family Experience Fever (Hyperthermia) With Anes: No Cholinesterase deficiency: No - Cardiovascular Hx Chest Pain within Last 2 months: No Hx of Irregular Heartbeat and/or Afib: No Hx Heart Attack: No Hx Congestive Heart Failure: No Hx Rheumatic Fever: No Hx Hypertension: No Hx Internal Defibrillator: No Hx Pacemaker: No Hx Cardiac Catheterization: No Hx Cardiac Surgery/Stents/Etc.: No Hx Stress Test: No HX Edema: No Hx Pain in Legs when Walking/Leg Cramps: Yes - cramps prn - Respiratory Chronic Cough: No HX of Shortness of Breath: No Hoarseness: No Hx Chronic Obstructive Pulmonary Disease (COPD): No Hx Asthma: No Hx Emphysema: No Hx Sleep Apnea: No Hx Oxygen Use at Home: No Hx Respiratory Tract Infection/Cold (presently): No Do You Snore Loudly (louder than talking or can be heard): No Do You Often Feel Tired/ Fatigued/ Sleepy Dring Daytime?: No Has Anyone Observed You Stop Breathing During Sleep?: No Result (for STOP score): Negative Hx Smoking: Yes - quit 25-30 yrs ago Smoking Status: Former smoker - Gastrointestinal Hx Gastroesophageal Reflux: No Hx Gastrointestinal Disorders: No Hx Gastrointestinal Bleed: No Hx Ulcer: Yes - at age 19 Hx Hiatal Hernia: No Difficulty Chewing/Swallowing: No Recent Onset of Swallowing Problems: No Special diet followed at home: No Hx Unplanned Weight Loss of 20#: No HX Unplanned Weight Gain of 20#: No - Neurological Hx Seizures: No HX Syncope/Blackout Spells/Unconsciousness: No Hx CVA/Stroke: No Hx Transient Ischemic Attacks (TIA): No Hx Multiple Sclerosis: No Hx Parkinson's Disease: No Hx Head/Neck Injury: No Hx Headaches: Yes Hx Back Injury/Pain: Yes - lower back and hip pain prn Recent Onset of Speech Difficulty: No Restless Legs: No Does patient have nerve stimulator: No Patient instructed to have device shut off: No Rep notified?: No - Blood Disorder Hx Leukemia: No Bleeding Tendencies: No Hx Deep Vein Thrombosis: No Hx High Cholesterol: No Blood Transmitted Disease: No Hx Hepatitis: No Hx Cirrhosis: No Hx Anemia: No Hx Blood Disorders: No - Genitourinary Hx Renal Disease: No - Musculoskeletal Hx Arthritis: No Hx Rheumatoid Arthritis: No Hx Gout: No Recent Onset of an Orthopedic Problem: No - Endocrine Hx Diabetes: No Thyroid Disease: No Hx Steroid Therapy: No - Psycho/Social Hx Substance Use: No Hx Alcohol Use: No Hx Anxiety: No Hx Depression: No Mental Illness: No Hx Dementia: No - Miscellaneous Hx Cancer: No Recent Exposure to Contagious Disease: No Active MRSA: No Hx of C-Diff: No Any Loose Teeth: No Allergies garlic Allergy (Severe, Verified 04/02/18 11:16) migrain soy Allergy (Severe, Verified 04/02/18 11:16) migraines food color Allergy (Uncoded 04/02/18 11:16) migrain - Discharge Is Pt Admitted From a Senior Living, or a Half-Way: No Who Could Help: After D/C, Where Do you Plan to Go: Return Home - Physical Exam General: Alert, Oriented x3, Cooperative Lungs: Normal air movement Cardiovascular: Regular rate, Regular Rhythm Abdomen: Soft, Non Tender, Non-Distended Vital Signs Temp Pulse Resp BP Pulse Ox 98.3 F 93 16 114/86 H 100 04/03/18 07:35 04/03/18 07:35 04/03/18 07:35 04/03/18 07:35 04/03/18 07:35 Oxygen Delivery Method Room Air Weight: 182 lb 12.211 oz Body Mass Index (BMI) 24.7 Assessment/Plan All Active Problems (Last Updated 03/13/18 @ 10:14 by Irma Holland) Impacted gayla (Acute) 62-year-old male for screening colonoscopy 1. I explained endoscopy in detail to the patient. I explained the risks including but not limited to stroke or heart attack with anesthesia, perforation of the GI tract, bleeding, infection. I explained that any of these could necessitate further emergency surgery. The patient understands and all questions were answered sufficiently. The patient wishes to proceed with procedure. Thom Hayward MD Pager: [facility] [address] [place] [address], [address] [place] [address] Office: Surgery Risks - Colonoscopy Risks Include but are not Limited To: Risks include but are not limited to: Bleeding, perforation requiring further surgery, inability to complete colonoscopy requiring barium enema. 04/03/18 0817 <Electronically signed by Thom Hayward MD> Date Thom Hayward MD Cosigner Signature: Date (if applicable) CC: Thom Hayward MD; Paige Faith MD Signed CT-CT ABD/PELVIS W/WO Observed: 04/03/2018 Status: F Source: [place] [facility] IMPORT 12:00 AM [facility] REPOSITORY Images were obtained outside of [facility] [id number] Observed: 03/19/2018 Status: F Source: [place] CULTURE, URINE 8:23 AM REPOSITORY Urine Culture [place] Count = 7800 cfu/mL Below infection level. ORGANISM 1: Alpha Hemolytic Streptococcus [place] Count 1000-10,000 Performed By: #### M100.0650 #### [facility] [place], [address] CBC W/DIFF, AUTOMATED Collected: 03/16/2018 Status: F Source: [place] 8:13 AM REPOSITORY TYPE CODE TESTS RESULT OUT OF RANGE REFERENCE UNITS LAB L100.1000 4.4-11.0 K/mm3 Normal WBC 5.7 LAB L100.1200 4.6-6.2 M/mm3 Normal RBC 5.22 LAB L100.1300 13.0-16.5 g/dl Normal HGB 14.7 LAB L100.1400 40-54 % Normal HCT 44.7 LAB L100.1500 80-94 fL Normal MCV 85.6 LAB L100.1600 27.0-32.0 pg Normal MCH 28.2 LAB L100.1700 32-36 g/gl Normal MCHC 32.9 LAB L100.1810 11.6-14.6 % Normal RDW CV 14.0 LAB L100.1820 35.1-43.9 fl Normal RDW SD 43.1 LAB L100.1900 150-450 K/mm3 Normal PLT 227 LAB L100.2000 6.2-12.0 fl Normal MPV 10.0 LAB L100.2100 47-70 % Normal NEUT% 55.7 LAB L100.2200 19-41 % Normal LY% 31.7 LAB L100.2300 0-10 % Normal MONO% 9.9 LAB L100.2400 0-5 % Normal EO% 2.3 LAB L100.2500 0-1 % Normal BASO% 0.4 LAB L100.2550 0.0-0.9 % Normal IM GRAN % 0.000 Result Comment: IG% - Immature Granulocytes (promyelocytes, myelocytes and metamyelocytes) > 1% indicates that a LEFT SHIFT is Present. LAB L100.2620 2.0-7.7 X10 3/uL Normal Absolute Neut 3.2 LAB L100.2720 0.83-4.51 X10 3/ul Normal Absolute Lymph 1.80 Performed By: #### L100.0100 #### [facility] [address] [place], [address] URINALYSIS, COMPLETE Collected: 03/16/2018 Status: F Source: [place] 8:13 AM REPOSITORY Order Comment: How was Urine Obtained? DIRECTOR FINANCIAL PLANNING TO SPECIFY TYPE CODE TESTS RESULT OUT OF RANGE REFERENCE UNITS LAB L400.3000 Yellow COLOR Normal Yellow LAB L400.3050 Clear Normal CLARITY Sl. Cloudy LAB L400.3200 Normal mg/dl Normal GLUCOSE, UR Normal LAB L400.3300 Negative mg/dL Normal BILIRUBIN URINE Negative LAB L400.3400 Negative mg/dl Normal KETONE UR Negative LAB L400.3465 1.002-1.030 Normal SP.GR. DIPSTX 1.015 LAB L400.3550 5.0 - 8.0 pH UR Normal 6.0 LAB L400.3600 Negative mg/dl High PROT DIPSTX 100 LAB L400.3700 Normal mg/dl Normal UROBILI Normal LAB L400.3750 Negative Normal NITRITE UR Negative LAB L400.3780 Negative /ul High OCCULT BLOOD-UR 250 LAB L400.3800 Negative /ul High LEUK 25 ESTERASE LAB L400.4050 0-5 /hpf WBC Normal 0-5 SEEN LAB L400.4100 0-5 /hpf Normal RBC-UA 25-50 SEEN LAB L400.4150 0-5 /hpf SQUAM Normal EPI 0-5 SEEN LAB L400.4300 None Seen /hpf 1+ Normal BACTERIA LAB L400.4350 <or=2+ /hpf 1+ Normal MUCUS, URINE Performed By: #### L400.0001 #### [facility] [address] [place], [address] COMPREHENSIVE METABOLIC Collected: 03/16/2018 Status: F [facility] Order Comment: Comments: fasting Comments: fasting TYPE CODE TESTS RESULT OUT OF RANGE REFERENCE UNITS LAB L501.0100 74-106 mg/dL Normal GLU 95 Result Comment: Please note revised GLUCOSE reference range effective 2017. LAB L501.1000 7-18 mg/dL Normal BUN 13 LAB L501.1100 0.70-1.30 mg/dL Normal CREAT,SERUM 0.94 Result Comment: The validity of the calculated GFR AND GFRAA in patients over 70 years has not been determined. Clinical correlation is essential. LAB L501.1110 >60 mL/min Normal EST GFR 87 Result Comment: Non- GFR Calc LAB L501.1115 >60 mL/min Normal EST GFR - AA 105 Result Comment: GFR Calc LAB L501.1300 10-20 RATIO Normal BUN/CRE 13.8 LAB L501.1500 6.4-8.2 g/dL T Normal PROT 7.1 LAB L501.1800 3.2-5.0 g/dL Normal ALB 3.6 LAB L501.1950 2.2-4.2 g/dL Normal GLOB 3.5 LAB L501.2000 0.9-2.4 RATIO Normal A/G 1.0 LAB L501.2200 8.5-10.1 mg/dL CA Normal 8.6 LAB L501.4100 15-37 U/L Normal AST 20 LAB L501.4305 45-117 U/L High ALK P 150 LAB L501.4405 16-61 U/L Normal ALT 28 LAB L501.4600 0.20-1.00 mg/dL T Normal BILI 0.90 LAB L501.5300 136-145 mmol/L NA Normal 137 LAB L501.5600 3.5-5.1 mmol/L K Normal 4.3 LAB L501.5900 98-107 mmol/L CL Normal 105 LAB L501.6100 21.0-32.0 mmol/L Normal CO2 24.0 LAB L501.6200 5-15 Normal GAP 8 Performed By: #### L500.4050, L500.4100, L501.9910 #### [facility] [address] [place], [address] LIPID PROFILE Collected: 03/16/2018 Status: F Source: [place] 8:13 AM REPOSITORY Order Comment: Comments: fasting Comments: fasting TYPE CODE TESTS RESULT OUT OF RANGE REFERENCE UNITS LAB L501.4900 200 mg/dL Normal CHOL 145 Result Comment: <200 mg/dL Desirable 200-240 mg/dL Borderline >240 mg/dL High Risk LAB L501.5000 mg/dL Normal TRIG 46 Result Comment: The drugs N-Acetylcysteine and Metamizole may falsely depress this assay. Serum Triglycerides Reference Interval Normal <150 mg/dL Borderline high 150 - 199 mg/dL High 200 - 499 mg/dL Very High > or = 500 mg/dL LAB L501.6400 mg/dL Low HDL 37 Result Comment: The drugs N-Acetylcysteine and Metamizole may falsely depress this assay. Reference Range HDL <40 mg/dL Low HDL Cholesterol HDL >or= 60 mg/dL High HDL Cholesterol LAB L501.6500 0-130 mg/dL Normal LDL 99 LAB L501.6600 5-40 mg/dL Normal VLDL 9 Performed By: #### L500.4050, L500.4100, L501.9910 #### [facility] [address] [place], [place], [address] PSA,TOTAL - ANNUAL Collected: 03/16/2018 Status: F Source: [place] SCREEN 8:13 AM REPOSITORY Order Comment: Comments: fasting Comments: fasting TYPE CODE TESTS RESULT OUT OF RANGE REFERENCE UNITS LAB L501.9910 0.00-4.00 ng/mL Normal PSA,TOT 1.19 SCREEN Result Comment: This test was performed using the TPSA assay method for the Dimension chemistry system. Values obtained with different assay methods cannot be used interchangably. When changing PSA assays in the course of monitoring a patient, additional sequential testing should be carried out to confirm baseline values. Performed By: #### L500.4050, L500.4100, L501.9910 #### [facility] [address] [place], [address] L/S SPINE MIN 4 Observed: 03/16/2018 Status: F Source: [place] VIEWS 8:11 AM REPOSITORY [facility] Imaging Services [address] [place] [address] L/S Spine Min 4 Views MR#: [id number] Acct: [id number] Name: PAOLO MOE Rep #: [id number] : 1955 M 62 From: [place] PCP: Paige Faith MD Status: REG CLI Study: L/S Spine Min 4 Views Date of Exam: 03/16/18 Exam# [id number] Ordering Dr: Paige Faith MD STUDY: X-RAY - LUMBAR SPINE REASON FOR EXAM: Male, 62 years old. LBP, no trauma TECHNIQUE: 5 view(s) of the lumbar spine were obtained. COMPARISON: None FINDINGS: Normal lumbar lordosis. There is multilevel endplate spondylosis of the lumbar vertebrae. There is multi-level degenerative disc disease with multi-level disc space narrowing. The soft tissue structures are unremarkable. RAD/L/S Spine Min 4 Views IMPRESSION: Degenerative changes of the spine. Electronically Signed: [place] MD at 10:07 EDT Tel , Service support , CC: Paige Faith MD Telephonic Rn: Signed HIP, UNI W/ PELVIS Observed: 03/16/2018 Status: F Source: [place] 2-3 VIEWS 8:11 AM REPOSITORY [facility] Imaging Services [address] [place] [address] HIP, UNI W/ Pelvis 2-3 Views MR#: [id number] Acct: [id number] Name: PAOLO MOE Rep #: [id number] : 1955 M 62 From: Karma Morrell MD PCP: Paige Faith MD Status: REG CLI Study: HIP, UNI W/ Pelvis 2-3 Views Date of Exam: 03/16/18 Exam# [id number] Ordering Dr: Paige Faith MD STUDY: X-RAY - PELVIS AND LEFT HIP REASON FOR EXAM: Male, 62 years old. Hip pain. TECHNIQUE: Radiological exam, hip, unilateral, with pelvis when performed; 2 or 3 views. COMPARISON: None. FINDINGS: There is a non-specific bowel gas pattern. Normal visualized soft tissue structures. Normal bilateral iliac wings, sacroiliac joints and visualized sacrum. Normal bilateral superior and inferior pubic rami. There are degenerative changes of the pubic symphysis with sclerosis. Normal bilateral ischial tuberosities. There are mild degenerative changes of the hips bilaterally. RAD/HIP, UNI W/ Pelvis 2-3 Views IMPRESSION: Degenerative changes. Electronically Signed: Karma Morrell MD at 23:25 EDT Tel , Service support , CC: Paige Faith MD Telephonic Rn: Signed INTERNAL MEDICINE Observed: 03/13/2018 Status: F Source: [place] OFFICE VISIT 4:33 PM REPOSITORY [facility] [address] [place] [address] [place] [address] OFFICE VISIT Date of Service: 03/13/18 MR#: [id number] Acct: [id number] Name: PAOLO MOE Rep #: [id number] : 1955 Provider: Paige Faith MD Age/Sex: 62/M Location: [facility] Status: Signed Intake Vital Signs03/13/18 Height 5 ft 11 in Intake Visit Reasons: EST PCP/hasn't seen doc in 10+ yrs Chief Complaint: establish care and lower back and hip problems Is patient in pain?: Yes (intermittant hip and back pain) Pain scale (1-10): 5 Allergies garlic Allergy (Severe, Verified 03/13/18 09:54) migrain soy Allergy (Severe, Verified 03/13/18 09:54) migraines food color Allergy (Uncoded 03/13/18 09:54) migrain PFSH Medical History Seasonal allergies (Chronic) Hearing loss (Chronic) Amputation of finger tip (Acute) Family History Father Cancer lung Mother Colon cancer Aunt Colon cancer Social History Smoking Status: Former smoker how long ago did patient quit smokin alcohol intake: never substance use type: does not use what type of physical activity do you participate in: other details: works construction HPI HPI Chief Complaint: establish care and lower back and hip problems Details: PAOLO MOE, is a 62yo M who presents to the office today to establish care. He also has some concerns. He reports ongoing left hip pain which appears to be worsening lately. Initial onset was over 20 years ago. Pain is said to be constant with occasional radiation down his thigh. Denies any known precipitating factor. He also reports low back pain which is been ongoing for months in duration time. Worse with movement. Denies numbness or tingling in his extremities. He has not been to a physician in many years. He denies any significant past medical history. He has not had any routine screenings. ROS Const Constitutional: No weight change, body ache, chills, fatigue, sleep problems, fever(s), change in appetite, snoring, weakness, frequent falls, headache(s) or excessive sweating Eyes Eyes: No change in vision, eye pain, light sensitivity or blurry vision ENT ENT: Positive for hearing loss; no headache(s), abnormal hearing, ear pain, tinnitus, nasal congestion, sore throat or neck pain Resp Respiratory: No snoring, cough, shortness of breath or wheezing Cardio Cardiology: No excessive sweating, chest pain at rest, chest pain with exertion, shortness of breath, dyspnea on exertion, palpitations, orthopnea or lightheadedness Gastro GI: No abdominal pain, change in bowel habits, constipation, diarrhea, vomiting, nausea/dyspepsia or cramping Genitourinary Male: Positive for urinary frequency (maybe more than usual); no painful urination, urinary incontinence, urinary urgency, blood in urine, testicle pain or other Musc Musculoskeletal: Positive for joint pain, back pain and other (hip pain); no neck pain, abnormal walking, limited range of motion, numbness or tingling Skin Skin: No redness, dry skin, itching, lesions, wounds or rash Neuro Neurology: No weakness, frequent falls, headache(s), abnormal hearing, abnormal walking, numbness, tingling, abnormal speech or memory loss Psych Psychiatric: No change in appetite, No memory loss, No anxiety, No depression, No Thoughts of harming yourself/Others Endo Endocrine: No fatigue, excessive sweating, cold intolerance, increased thirst/drinking, heat intolerance, flushing or increased hunger Aller/Imm Allergy/Immunologic: No wheezing, itchy eyes, hives or seasonal allergy symptoms Joe/Lymp Hematologic/Lymphatic: No easy bleeding, easy bruising or enlarged lymph nodes Exam Const General: cooperative, no acute distress, well developed Orientation: alert, awake, oriented x3 [facility] Head: atraumatic, normocephalic, normal to inspection Ears: hearing grossly normal bilaterally Other: Impacted earwax on the right Resp Effort AND Inspection: normal respiratory effort, able to speak in complete sentences Auscultation: Bilateral: Clear to Auscultation Cardio Rate: regular rate Rhythm: regular rhythm Heart Sounds: S1 normal, S2 normal GI Palpation: soft, no hepatosplenomegaly Neuro General: alert, awake, oriented x3, moves all extremities, CN's II-XI intact bilaterally Extrem General: no clubbing, cyanosis or edema Psych Appearance: grossly normal Mood: congruent mood Affect: normal affect Office Procedures Cerumen Removal BMS Cerumen Removal Procedure Procedure performed by: Irma Holland Method of removal: irrigation From which ear canal was the cerumen removed: right Amount of Cerumen: large Patient tolerated procedure: well Complications: none Additional Details: Irrigation was successful in removing a large size cerumen. Office Meds Flucelvax Quad [id number] (PF) Performing Provider: Paige Faith MD Administered by: Irma Holland on 03/13/18 11:25 Dose Route Admin Location Lot Number Expiration Date NDC Teacher 0.5 mL IM right deltoid [id number] 11/29/18 70897-038-15 [employer]. Assessment AND Plan 1. Left hip pain M25.552 Plan Chronic. However now concerning. Possibly secondary to osteoarthritis X-ray ordered. Follow-up with results. NSAIDs as needed with food. Orders Orders: 2. Chronic back pain M54.9; G89.29 Plan Also said to be chronic. Again becoming more concerning. No significant neurological deficits. X-ray ordered. Possible physical therapy on review. 3. Increased urinary frequency R35.0 Plan He denies any problems with his urinary stream, urgency or feeling of incomplete emptying. Urinalysis ordered. PSA also ordered. Orders Orders: 4. Impacted cerumen H61.20 Plan Ear irrigation done. Procedure was well tolerated. Orders Orders: 5. Healthcare maintenance Z00.00 Plan Referred to general surgery for screening colonoscopy. Labs ordered. Flu shot given. This note was generated with [employer] dictation software. It may contain incorrect words, spelling, and punctuation that were not noted in checking the note before signing. Orders Orders: Plan Detail Other Orders Orders: Referrals: Other Medications Discontinued: Flucelvax Quad [id number] (PF) (flu vac qs 2018(4 yr up)CD(P0.5 mL IM ONCE 1 mL 0RF NS Z23 F)) Discontinued Reason: Office Medication has been Doc umented as given Coding Level of Care Code Off vis,new,level 4 Diagnoses Left hip pain M25.552 Chronic back pain M54.9; G89.29 Increased urinary frequency R35.0 Impacted cerumen H61.20 Healthcare maintenance Z00.00 03/13/18 1633 <Electronically signed by Paige Faith MD> Date Sonanu Marcell BRIGGS Cosigner Signature: Date (if applicable) CC: ALLERGIES ALLERGIES DATE TYPE / CODE NAME / CODE REACTION SEVERITY SOURCE 06/16/2018 DRUG GARLIC OIL INTOLERANCE [place] INGREDI/859729986(S [facility] NOMED CT) [place] Repository 04/13/2018 DRUG SOY INTOLERANCE High [place] INGREDI/731753262(S [facility] NOMED CT) [place] Repository 04/13/2018 Drug garlic/F0060 Migrain [place] Allergy/517544116(S [address]([place] ) [facility] Repository 04/13/2018 Drug soy/H1704543 MIGRAINES SV [place] Allergy/058734772(S 05(RXNORM) [facility] [place] Hospital Repository 04/02/2018 DRUG/272514233(SNOM BROWN FOOD INTOLERANCE [facility]) COLOR (BULK) Clinic Main [place] Repository 04/02/2018 Miscellaneous food color Migrain Unknown [place] Allergy/371414312([facility]) Hospital Repository ENCOUNTERS ENCOUNTERS ADMIT/DISCHARGE ACCOUNT ADMITTING ENCOUNTER LOCATION SOURCE NUMBER CLASS 06/23/2018/06/24/19 [id number] Ambulatory [address] Main [place] Repository 06/23/2018/06/23/19 [id number] Ambulatory [address] Repository 06/19/2018/06/23/19 [id number] Ambulatory [address] Repository 06/16/2018/06/16/19 [id number] Ambulatory [address] Repository 05/18/2018 [id number] Ambulatory [facility] ing:ONC Repository 04/17/2018/04/17/[id number] ing:SDC Repository 04/13/2018 [id number] Ambulatory BMSBuilding:W [facility] Repository 04/04/2018 [id number] Ambulatory [facility] ing:CT Repository 04/03/2018 [id number] Ambulatory BMSBuilding:B [place].CF.[facility] Repository 04/03/2018/04/03/20 [id number] Ambulatory [address] ing:ENRoom: Repository AC11 03/19/2018/03/19/20 [id number] Ambulatory BMSBuilding:B [place] 18 MS.[facility] Repository 03/19/2018 [id number] Ambulatory [facility] ing:MTLAB Repository 03/16/2018 [id number] Ambulatory [facility] ing:MTLAB Repository 03/13/2018/03/13/20 [id number] Ambulatory BMSBuilding:B [place] 18 [place].[facility] Repository PAYERS PAYERS ENCOUNTER GUARANTOR PAYER SUBSCRIBER SOURCE 05/18/2018 PAOLO L Primary CLIVE A [place] SHALLENBERGER1 Insurance:Celine COFFMANB: [facility] [address] Number: [id number] [id number] Repository [address]Iox: e Date:2650-27-85EN [facility] [id number] [address]MX: 05/18/2018 Secondary NOT GIVENUNK [place] Insurance:SELF PAY [facility] Number: Effective Repository Date:2018-05-14 04/17/2018 PAOLO L Primary CLIVE [place] SHALLENBERGER1 Insurance:Celine LEES [facility] [address] Number: [place], [place] [id number] Repository [address]Vhy: e Date:6892-72-16KF [facility] 508163YGHKDHWTIMPANOGOS REGIONAL [facility] [address]LP: 04/17/2018 Secondary NOT GIVENUNK [place] Insurance:SELF PAY [facility] Number: Effective Repository Date:2018-04-13 04/13/2018 PAOLO L Primary CLIVE [place] SHALLENBERGER1 Insurance:Celine LEES [facility] [address] Number: [place], [place] [id number] Repository [address]Jge: e Date:7688-42-50QO [address]FTGJHVS, () [place] [address]FG: 04/13/2018 Secondary NOT GIVENUNK [place] Insurance:SELF [facility]Y [facility] Effective Repository Date:2018-04-13 04/04/2018 PAOLO L Primary CLIVE [place] SHALLENBERGER1 Insurance:ANTHEMPoli SHALLENBERGERUNK Community [address] Number: [place], [place] [id number] Repository [address]Qmg: e Date:4196-56-24IR [address]JYYT[address], () [place] [address]PF: 04/04/2018 Secondary NOT GIVENUNK [place] Insurance:SELF PAY [facility] Number: Effective Repository Date:2018-03-31 04/03/2018 PAOLO L Primary PAOLO L [place] SHALLENBERGER1 Insurance:ANTHEMPoli SHALLENBERGERDOB: Community [address] Number: [id number], [place] [id number] Repository [address]Jrz: e Date:4505-87-75PZ [address]YZTANCW, () [place] [address]NT: 04/03/2018 Secondary NOT GIVENUNK [place] Insurance:SELF PAY [facility] Number: Effective Repository Date:2018-04-03 04/03/2018 PAOLO L Primary CLIVE [place] SHALLENBERGER1 Insurance:ANTHEMPoli SHALLENBERGERDOB: Community [address] Number: [id number], [place] [id number] Repository [address]Pmc: e Date:9885-98-15YA [address]JJPXTK[address], () [place] [address]IJ: 04/03/2018 Secondary NOT GIVENUNK [place] Insurance:SELF PAY [facility] Number: Effective Repository Date:2018-03-19 03/19/2018 PAOLO L Primary PAOLO L [place] SHALLENBERGER1 Insurance:ANTHEMPoli SHALLENBERGERDOB: Community [address] Number: [id number], [place] [id number] Repository [address]Qnm: e Date:8048-37-90XP [address]GBCSQMF, () [place] [address]EY: 03/19/2018 Secondary NOT GIVENUNK [place] Insurance:SELF PAY [facility] Effective Repository Date:2018-03-19 03/19/2018 PAOLO L Primary CLIVE [place] SHALLENBERGER1 Insurance:ANTHEMPoli SHALLENBERGERDOB: Community [address] Number: [id number], [place] [id number] Repository [address]Onh: e Date:5087-89-42NC [address]ASQILWQ, () [place] [address]YJ: 03/19/2018 Secondary NOT GIVENUNK [place] Insurance:SELF PAY [facility] Number: Effective Repository Date:2018-03-19 03/16/2018 PAOLO L Primary CLIVE [place] SHALLENBERGER1 Insurance:ANTHEMPoli SHALLENBERGERDOB: Community [address] Number: [id number], [place] [id number] Repository [address]Mik: e Date:0673-54-83BO [address]LUTNUWS, () [place] [address]WE: 03/16/2018 Secondary NOT GIVENUNK [place] Insurance:SELF PAY [facility] Number: Effective Repository Date:2018-03-16 03/13/2018 PAOLO L Primary PAOLO L [place] SHALLENBERGER1 Insurance:ANTHEMPoli SHALLENBERGERDOB: Community [address] Number: [id number] [id number] Repository [place] [address]Ycb: e Date:1290-55-20PJ [address]HHGLPNM, (YURIY CHAUDHARY [address]PZ: 03/13/2018 Secondary NOT GIVENUNK [place] Insurance:SELF PAY [facility] Number: Effective Repository Date:2018-03-13
== END ==
PROVIDERS: Family Provider Internal Medicine; PCP Internal Medicine; Visit Provider Urology
DX: C67.2 Malignant neoplasm of lateral wall of bladder (principal); D41.4 Neoplasm of uncertain behavior of bladder
CPT/HCPCS: 78815; A9552

== ENCOUNTER 2021-09-06 09:23 | Outpatient (CLI) | payer BC, SELFPAY ==
[2021-09-06 12:29] LABS: Vitamin D,25 Hydroxy 24.2 ng/mL
[2021-09-06 12:37] LABS: ALB/GLOB Ratio 0.9 RATIO (0.9-2.4); AST(SGOT) 25 U/L (15-37); Alanine Aminotransfer ALT/SGPT 37 U/L (16-61); Albumin, Serum 3.5 g/dL (3.2-5.0); Alkaline Phosphatase 147 U/L (45-117); Anion Gap 4 (5-15); BUN 13 mg/dL (7-18); BUN/Creat Ratio 14.1 RATIO (10-20); Calcium,Total 8.8 mg/dL (8.5-10.1); Chloride 111 mmol/L (98-107); Creatinine, Serum 0.92 mg/dL (0.70-1.30); EST Glomerular Filtration Rate 87 mL/min (>60); Est Glom Filt Rate - Afr Amer 106 mL/min (>60); Globulin 3.7 g/dL (2.2-4.2); Glucose 93 mg/dL (74-106); Potassium 4.4 mmol/L (3.5-5.1); Protein, Total 7.2 g/dL (6.4-8.2); Sodium Level 139 mmol/L (136-145)
== END 2021-09-06 23:59 | disposition home or self-care (01) ==
LOC: MTLAB 09:25
PROVIDERS: PCP Family Medicine; Referring Provider Family Medicine; Visit Provider Family Medicine
DX: S32.000A Wedge compression fracture of unspecified lumbar vertebra, initial encounter for closed fracture (principal)
CPT/HCPCS: 36415; 80053; 82306; 83970

== ENCOUNTER 2021-09-12 08:20 | Outpatient (CLI) | payer BC, SELFPAY ==
--- NOTE | 2021-09-12 08:26 | BD_ITS ---
STUDY: DUAL ENERGY X-RAY ABSORPTIOMETRY / DXA REASON FOR EXAM: Male, 65 years old. S32.000A. TECHNIQUE: Bone Mineral Density (BMD) measurements of lumbar spine and bilateral hips were obtained. COMPARISON: None. FINDINGS: Lumbar Spine (L1-L4): g/cm2 (0.821) / T-score (-2.5) / Z-score (-1.7) Findings are suggestive of osteopenia with a high fracture risk. Left Femur Total: g/cm2 (0.936) / T-score (-0.6) / Z-score (-0.1) Left Femoral Neck: g/cm2 (0.709) / T-score (-1.6) / Z-score (-0.6) Right Femur Total: g/cm2 (0.846) / T-score (-1.2) / Z-score (-0.7) Right Femoral Neck: g/cm2 (0.654) / T-score (-2.0) / Z-score (-1.0) BD/Dexa Bone Density Study IMPRESSION: The patient is considered osteopenic as outlined below according to World James Organization (WHO) criteria with a high fracture risk. Reference Information: The T-score is the number of standard deviations above or below the standard which is normal for young adults at their peak bone mineral density. The World Health Organization (WHO) interprets the T-scores as follows: Above -1 Normal bone density Between -1 and -2.5 Osteopenia Equal to / or below -2.5 Osteoporosis As a practical clinical guideline, osteopenia may be graded as follows: Mild -1 through -1.5 Moderate -1.6 through -2.0 Severe -2.1 through -2.4 The Z-score is the number of standard deviations above or below age-matched controls. A Z-score of less than -1.5 would be considered abnormal. References: 1. NIH Osteoporosis and Related Bone Diseases www osteo.org 2. International Society for Clinical Densitometry www iscd.org 3. National Osteoporosis Foundation www nof.org Electronically Signed: Alfonso Lane MD at 13:41 EDT ,
== END 2021-09-12 23:59 | disposition home or self-care (01) ==
LOC: OPBD 08:21
PROVIDERS: PCP Family Medicine; Visit Provider Family Medicine
DX: S32.000A Wedge compression fracture of unspecified lumbar vertebra, initial encounter for closed fracture (principal)
CPT/HCPCS: 77080

== ENCOUNTER 2021-09-13 08:05 | Outpatient (CLI) | payer BC, SELFPAY ==
[2021-09-14 14:10] LABS: PROEL- A/G Ratio 1.3 (0.7-1.7); PROEL- Albumin 3.7 g/dL (2.9-4.4); PROEL- Alpha-1 Globulin 0.2 g/dL (0.0-0.4); PROEL- Alpha-2 Globulin 0.6 g/dL (0.4-1.0); PROEL- Globulin, Total 2.9 g/dL (2.2-3.9); PROEL- TOTAL PROTEIN 6.6 g/dL (6.0-8.5)
== END 2021-09-13 23:59 | disposition home or self-care (01) ==
LOC: MTLAB 08:07
PROVIDERS: PCP Family Medicine; Referring Provider Family Medicine; Visit Provider Family Medicine
DX: E88.09 Other disorders of plasma-protein metabolism, not elsewhere classified (principal)
CPT/HCPCS: 36415; 84165

== ENCOUNTER 2022-10-08 09:02 | Day surgery (SDC) | payer BC, SELFPAY ==
[2022-10-08 09:34] VITALS: BP 126/82; PULSE 66; RESP 16; TEMP 36.3; O2SAT 98; BMI 26.1
[2022-10-08] MEDS: Lactated Ringers 1,000 ML 15 ML IV (09:39)
--- NOTE | 2022-10-08 10:15 | COLBX_PTH ---
PATIENT: PAOLO ALVARADO Jr. LOC: EN U#:[id number] AGE/SX: 66/M ROOM: RE10/08/[address]: Dr. Thom Hayward MD : 1955 BED: DIS: 10/08/2022 SPEC #: [id number] RECD: 10/08/22 14:40 STATUS: JAZ CASTILLO #: [id number] MINH: 10/08/22 10:[address]: Thom Hayward DEPT: SURGICAL PATHOLOGY RECD BY: Moses Mosquera ENTERED: 10/09/22 10:12 SP TYPE: COLON BX OTHR DR: Dr. John Robles MD Tissues: Sigmoid colon biopsy Procedures: Surgery Specimen Level IV HEADER OPERATION: Colonoscopy, polypectomy (MAC) PRE-OP DIAGNOSIS: History of colon polyps TISSUE SUBMITTED: Sigmoid colon polyp MICROSCOPIC DIAGNOSIS Sigmoid colon polyp, biopsy: Fragments of tubular adenoma. AM:malcolm 10/10/2022 MICROSCOPIC DESCRIPTION Slides are reviewed. GROSS DESCRIPTION Received in fixative is one container labeled with the patient's name and designated sigmoid colon polyp. The specimen consists of two polypoid pieces of paz-pink soft tissue measuring 0.7 x 0.5 x 0.4 cm and 0.4 x 0.3 x 0.3 cm. A minute fragment of paz soft tissue is also noted measuring 0.2 cm in greatest dimension. The entire specimen is submitted in one cassette. / SJ:malcolm 10/09/2022 TC:5 CPT: 83394
--- NOTE | 2022-10-08 10:25 | HP.PCM_ITS ---
History and Physical Date of Admission: 10/08/22 Intake Vital Signs ? 09/19/2307:31 Height 5 ft 11 in Weight: 193 lb 8 oz BMI 26.9 BP 115/84 H Blood Pressure Location Rt brachial Respiration 18 Pulse 72 Pulse Source Monitor Temp 97.1 F L Temp Source Temporal Pulse Oximetry (%) 97 Oxygen Delivery Method room air Intake Visit Reasons:?COLONOSCOPY Chief Complaint: colonoscopy Allergies garlic Allergy (Severe, Verified 09/12/22 11:07) migrainsoy Allergy (Severe, Verified 09/12/22 11:07) migrainesNitrate Analogues Adverse Reaction (Verified 09/12/22 11:07) MIGRAINEfood color Allergy (Uncoded 09/12/22 11:07) migrain Medications ciprofloxacin HCl 500 mg tablet 500 mg PO BID ##6 04/17/18 [Rx] ibuprofen 600 mg tablet 600 mg PO Q6H PRN PRN Pain #20 tabs 04/17/18 [Rx] phenazopyridine 100 mg tablet (Pyridium) 100 mg PO TID PRN PRN burning with urination #10 tabs 04/17/18 [Rx] alendronate 70 mg tablet (Fosamax) 70 mg PO QWEEK 09/12/22 [History Confirmed 09/18/22] cetirizine 10 mg tablet (Zyrtec) 10 mg PO DAILY PRN 09/12/22 [History Confirmed 09/18/22] cholecalciferol (vitamin D3) 50 mcg (2,000 unit) capsule 50 mcg PO DAILY 09/12/22 [History Confirmed 09/18/22] PFSH Medical History? Amputation of finger tip Bladder cancer Hearing loss Hx of colonic polyps Seasonal allergies Surgical History? History of colonoscopy History of total cystectomy Family History? Father Cancer ?? ? lung ?? ?Mother Colon cancerAunt Colon cancer Social History? household members:? spouse Smoking Status:? Former smoker how long ago did patient quit smoking:? 1987 alcohol intake:? never substance use type:? 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 other details: works c onstruction HPI HPI HPI: Patient is a 66-year-old male here for rectal thickening.? He had bladder cancer and had treatment for this.? He had a follow-up CT scan last month which showed some nonspecific thickening of the rectal wall.? He also had colonoscopy 5 years ago and 2 polyps were identified so he is due for surveillance colonoscopy anyway.? He denies any gross blood in his stool. ROS General General: No weight change, appetite, fatigue, colon cancer, breast cancer or weakness HEENT HEENT: No difficulty swallowing, eye injury, eye surgery, swollen glands or hoarseness Endo Endocrine: No thyroid disease, diabetes mellitus, thyroid cancer, Hair loss, heat intolerance or cold intolerance Skin Skin: No rash or changing moles Breast Breast: No left breast lump, right breast lump, nipple discharge, breast pain, abnormal mammogram, abnormal US or breast enlargement Musc Musculoskeletal: Yes arthritis; No back problems, rheumatoid arthritis, gout or joint pain Cardio Cardiovascular: No murmur, pacemaker, heart disease, atrial fibrillation, high blood pressure, heart attack, heart stent, palpitations, shortness of breat with exertion or chest pain Psych Psychiatric: No depression, anxiety or hearing voices Resp Respiratory: No shortness of breath, No sleep apnea, No cough, No COPD, No asthma, No emphysema and No wheezing Gastro Gastrointestinal: No abdominal pain, No nausea or vomiting, No diarrhea, No constipation, No blood in stool, No acid reflux, No hemorrhoids, No ulcers, No gallbladder problem and No black,tarry stools Joe Hematologic: No blood thinners, No blood disorders, No bleeding, No anemia and No blood clots Neuro Neurologic: No system reviewed and no additional complaints, except as documented, No as per HPI, No abnormal gait, No abnormal hearing, No abnormal movements, No abnormal speech, No behavioral changes, No burning sensations, No confusion, No convulsions, No disequilibrium, No dizziness, No localized weakness, No frequent falls, No headache(s), No lack of coordination, No loss of vision, No memory loss, No numbness, No other visual disturbances, No radicular pain, No restless legs, No sensory deficit, No syncope, No tingling, No tremor(s), No weakness and No other Exam Const General: cooperative Orientation: alert and oriented x3 HENMT Head: normal to inspection Neck Neck: normal visual inspection and full ROM Chest Chest palpation & inspection: normal inspection of the chest Resp Effort & Inspection: normal respiratory effort Auscultation: clear to auscultation bilaterally Cardio Rate: regular rate Rhythm: regular rhythm GI Inspection: non-distended Palpation: soft and nontender Skin General: no rashes or lesions noted Neuro General: patient alert and patient oriented x3 Extrem General: full ROM Psych Appearance: grossly normal Mental Status: mental status grossly normal Assessment and Plan Assessment and Plan (1) History of colon polyps: ?Status:?Acute ?Plan: Patient had some nonspecific rectal wall thickening on recent CT scan but he also had 2 polyps 5 years ago removed on colonoscopy and he is due for surveillance colonoscopy anyway.? Plan on performing surveillance colonoscopy for this patient. I explained endoscopy in detail to the patient.? I explained the risks including but not limited to stroke or heart attack with anesthesia, perforation of the GI tract, bleeding, infection.? I explained that any of these could necessitate further emergency surgery.? The patient understands and all questions were answered sufficiently.? The patient wishes to proceed with procedure. Thom Hayward MD Pager: [facility] [address] [place] [address], [address] [place] [address] Office: I have examined the patient and the H&P has been reviewed. There are no clinical changes since date of exam.
[2022-10-08 11:05] VITALS: BP 109/82; BP 126/82; PULSE 72; RESP 16; TEMP 36.6; O2SAT 95
--- NOTE | 2022-10-08 11:05 | OP.COLON_ITS ---
Patient Name: Yoseph Moe Procedure Date: 10/08/2022 10:33 AM Date of : 1955 Age: 66 Procedure: Colonoscopy Indications: Abnormal CT of the GI tract Providers: Thom Hayward MD Medicines: Monitored Anesthesia Care Patient Profile: Last Colonoscopy: 5 years ago. Complications: No immediate complications. Estimated blood loss: Minimal. Procedure: Pre-Anesthesia Assessment: - Prior to the procedure, a History and Physical was performed, and patient medications and allergies were reviewed. The patient's tolerance of previous anesthesia was also reviewed. The risks and benefits of the procedure and the sedation options and risks were discussed with the patient. All questions were answered, and informed consent was obtained. Prior Anticoagulants: The patient has taken no previous anticoagulant or antiplatelet agents. After reviewing the risks and benefits, the patient was deemed in satisfactory condition to undergo the procedure. After I obtained informed consent, the scope was passed under direct vision. Throughout the procedure, the patient's blood pressure, pulse, and oxygen saturations were monitored continuously. The pediatric colonoscope was introduced through the anus with the intention of advancing to the cecum. The scope was advanced to the ascending colon before the procedure was aborted. Medications were not given. The colonoscopy was performed without difficulty. The patient tolerated the procedure well. The quality of the bowel preparation was not adequate to identify polyps 6 mm and larger in size. Scope In: 10:41:47 AM Scope Out: 10:59:06 AM Total Procedure Duration Time 0 hours 17 minutes 19 seconds Findings: A polyp was found in the sigmoid colon. The polyp was removed with a hot snare. Resection and retrieval were complete. Impression: - Preparation of the colon was inadequate. - One polyp in the sigmoid colon, removed with a hot snare. Resected and retrieved. Recommendation: - Discharge patient to home. - Resume previous diet. - Continue present medications. - Await pathology results. - Repeat colonoscopy in 6 months because the bowel preparation was poor. Procedure Code(s): --- Professional --- 29727, 52, Colonoscopy, flexible; with removal of tumor(s), polyp(s), or other lesion(s) by snare technique Diagnosis Code(s): --- Professional --- D12.5, Benign neoplasm of sigmoid colon R93.3, Abnormal findings on diagnostic imaging of other parts of digestive tract CPT copyright 2017 [employer]. All rights reserved. The codes documented in this report are preliminary and upon field property loss specialist review may be revised to meet current compliance requirements. Thom Hayward MD 10/08/2022 11:05:24 AM This report has been signed electronically. Number of Addenda: 0 Note Initiated On: 10/08/2022 10:33 AM
--- NOTE | 2022-10-08 11:06 | OP.CCLET_ITS ---
10/08/2022 John Robles [address] [place] [address] Re : Colonoscopy procedure for Yoseph Leonejuany Dear Dr. Robles This procedure was performed on Saturday, October 08, 2022. My impressions and recommendations are as follows: Impressions : - Preparation of the colon was inadequate. - One polyp in the sigmoid colon, removed with a hot snare. Resected and retrieved. Recommendations : - Discharge patient to home. - Resume previous diet. - Continue present medications. - Await pathology results. - Repeat colonoscopy in 6 months because the bowel preparation was poor. My findings are described in the full procedure note, which is enclosed. If I can be of further assistance, please feel free to contact me at Doctor phone number(s): , Work: . Sincerely, Thom Hayward MD 10/08/2022 11:05:24 AM This report has been signed electronically.
[2022-10-08 11:10] VITALS: BP 112/78; BP 126/82; PULSE 69; RESP 16; O2SAT 95
[2022-10-08 11:15] VITALS: BP 126/82; BP 92/73; PULSE 66; RESP 16; O2SAT 98
[2022-10-08 11:20] VITALS: BP 105/81; BP 126/82; PULSE 56; RESP 16; TEMP 36.4; O2SAT 98
[2022-10-08 11:36] VITALS: BP 126/82
== END 2022-10-08 11:42 | disposition home or self-care (01) ==
LOC: EN 09:05 → AC 09:06
PROVIDERS: PCP Family Medicine; Referring Provider Surgery; Visit Provider Surgery
PROC: 0DJD8ZZ Inspection of Lower Intestinal Tract, Via Natural or Artificial Opening Endoscopic (ICD-10-PCS; CPT 45378; principal; 2022-10-08 10:10)
DX: D12.5 Benign neoplasm of sigmoid colon (principal); Z86.010 Personal history of colon polyps; Z87.891 Personal history of nicotine dependence
CPT/HCPCS: 45385; 88305; J7120; J2405

== ENCOUNTER 2022-12-02 08:00 | Day surgery (SDC) | payer BC, SELFPAY ==
--- NOTE | 2022-12-02 08:24 | HP.PCM_ITS ---
History and Physical Date of Admission: 12/02/22 Intake Vital Signs ? 09/19/2307:31 Height 5 ft 11 in Weight: 193 lb 8 oz BMI 26.9 BP 115/84 H Blood Pressure Location Rt brachial Respiration 18 Pulse 72 Pulse Source Monitor Temp 97.1 F L Temp Source Temporal Pulse Oximetry (%) 97 Oxygen Delivery Method room air Intake Visit Reasons:?COLONOSCOPY Chief Complaint: colonoscopy Allergies garlic Allergy (Severe, Verified 09/12/22 11:07)migrainsoy Allergy (Severe, Verified 09/12/22 11:07) migrainesNitrate Analogues Adverse Reaction (Verified 09/12/22 11:07) MIGRAINEfood color Allergy (Uncoded 09/12/22 11:07) migrain Medications ciprofloxacin HCl 500 mg tablet 500 mg PO BID ##6 04/17/18 [Rx] ibuprofen 600 mg tablet 600 mg PO Q6H PRN PRN Pain #20 tabs 04/17/18 [Rx] phenazopyridine 100 mg tablet (Pyridium) 100 mg PO TID PRN PRN burning with urination #10 tabs 04/17/18 [Rx] alendronate 70 mg tablet (Fosamax) 70 mg PO QWEEK 09/12/22 [History Confirmed 09/18/22] cetirizine 10 mg tablet (Zyrtec) 10 mg PO DAILY PRN 09/12/22 [History Confirmed 09/18/22] cholecalciferol (vitamin D3) 50 mcg (2,000 unit) capsule 50 mcg PO DAILY 09/12/22 [History Confirmed 09/18/22] PFSH Medical History? Amputation of finger tip Bladder cancer Hearing loss Hx of colonic polyps Seasonal allergies Surgical History? History of colonoscopy History of total cystectomy Family History? Father Cancer ?? ? lung ?? ?Mother Colon cancerAunt Colon cancer Social History? household members:? spouse Smoking Status:? Former smoker how long ago did patient quit smoking:? 1987 alcohol intake:? never substance use type:? 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 other details: works construction HPI HPI HPI: Patient is a 66-year-old male here for rectal thickening.? He had bladder cancer and had treatment for this.? He had a follow-up CT scan last month which showed some nonspecific thickening of the rectal wall.? He also had colonoscopy 5 years ago and 2 polyps were identified so he is due for surveillance colonoscopy anywa y.? He denies any gross blood in his stool. ROS General General: No weight change, appetite, fatigue, colon cancer, breast cancer or weakness HEENT HEENT: No difficulty swallowing, eye injury, eye surgery, swollen glands or hoarseness Endo Endocrine: No thyroid disease, diabetes mellitus, thyroid cancer, Hair loss, heat intolerance or cold intolerance Skin Skin: No rash or changing moles Breast Breast: No left breast lump, right breast lump, nipple discharge, breast pain, abnormal mammogram, abnormal US or breast enlargement Musc Musculoskeletal: Yes arthritis; No back problems, rheumatoid arthritis, gout or joint pain Cardio Cardiovascular: No murmur, pacemaker, heart disease, atrial fibrillation, high blood pressure, heart attack, heart stent, palpitations, shortness of breat with exertion or chest pain Psych Psychiatric: No depression, anxiety or hearing voices Resp Respiratory: No shortness of breath, No sleep apnea, No cough, No COPD, No asthma, No emphysema and No wheezing Gastro Gastrointestinal: No abdominal pain, No nausea or vomiting, No diarrhea, No constipation, No blood in stool, No acid reflux, No hemorrhoids, No ulcers, No gallbladder problem and No black,tarry stools Joe Hematologic: No blood thinners, No blood disorders, No bleeding, No anemia and No blood clots Neuro Neurologic: No system reviewed and no additional complaints, except as documented, No as per HPI, No abnormal gait, No abnormal hearing, No abnormal movements, No abnormal speech, No behavioral changes, No burning sensations, No confusion, No convulsions, No disequilibrium, No dizziness, No localized weakness, No frequent falls, No headache(s), No lack of coordination, No loss of vision, No memory loss, No numbness, No other visual disturbances, No radicular pain, No restless legs, No sensory deficit, No syncope, No tingling, No tremor(s), No weakness and No other Exam Const General: cooperative Orientation: alert and oriented x3 [facility] Head: normal to inspection Neck Neck: normal visual inspection and full ROM Chest Chest palpation & inspection: normal inspection of the chest Resp Effort & Inspection: normal respiratory effort Auscultation: clear to auscultation bilaterally Cardio Rate: regular rate Rhythm: regular rhythm GI Inspection: non-distended Palpation: soft and nontender Skin General: no rashes or lesions noted Neuro General: patient alert and patient oriented x3 Extrem General: full ROM Psych Appearance: grossly normal Mental Status: mental status grossly normal Assessment and Plan Assessment and Plan (1) History of colon polyps: ?Status:?Acute ?Plan: Patient had some nonspecific rectal wall thickening on recent CT scan but he also had 2 polyps 5 years ago removed on colonoscopy and he is due for surveillance colonoscopy anyway.? Plan on performing surveillance colonoscopy for this patient. I explained endoscopy in detail to the patient.? I explained the risks including but not limited to stroke or heart attack with anesthesia, perforation of the GI tract, bleeding, infection.? I explained that any of these could necessitate further emergency surgery.? The patient understands and all questions were answered sufficiently.? The patient wishes to proceed with procedure. Thom Hayward MD Pager: [place] [phone] Office: Patient had attempted colonoscopy 2 months ago but the bowel prep was inadequate. Reattempting today. Thom Hayward MD Pager: [address], [place] [address] Office:
[2022-12-02] MEDS: Lactated Ringers 1,000 ML 15 ML IV (08:31)
[2022-12-02 08:32] VITALS: BP 126/66; PULSE 71; RESP 16; TEMP 36.1; O2SAT 100; BMI 26.1
--- NOTE | 2022-12-02 09:28 | OP.COLON_ITS ---
Patient Name: Yoseph Moe Procedure Date: 12/02/2022 9:01 AM Date of : 1955 Age: 67 Procedure: Colonoscopy Indications: Screening for colorectal malignant neoplasm Providers: Thom Hayward MD Medicines: Monitored Anesthesia Care Patient Profile: This is a 67 year old male. Refer to note in patient chart for documentation of history and physical. Last Colonoscopy: more than 3 years ago. Complications: No immediate complications. Procedure: Pre-Anesthesia Assessment: - Prior to the procedure, a History and Physical was performed, and patient medications and allergies were reviewed. The patient's tolerance of previous anesthesia was also reviewed. The risks and benefits of the procedure and the sedation options and risks were discussed with the patient. All questions were answered, and informed consent was obtained. Prior Anticoagulants: The patient has taken no previous anticoagulant or antiplatelet agents. After reviewing the risks and benefits, the patient was deemed in satisfactory condition to undergo the procedure. After I obtained informed consent, the scope was passed under direct vision. Throughout the procedure, the patient's blood pressure, pulse, and oxygen saturations were monitored continuously. The was introduced through the anus and advanced to the cecum, identified by appendiceal orifice and ileocecal valve. The colonoscopy was performed without difficulty. The patient tolerated the procedure well. The quality of the bowel preparation was adequate to identify polyps 6 mm and larger in size. Scope In: 9:04:41 AM Scope Withdrawal Time 0 hours 6 minutes 23 seconds Scope Out: 9:25:53 AM Total Procedure Duration Time 0 hours 21 minutes 12 seconds Findings: The entire examined colon appeared normal on direct and retroflexion views. Impression: - The entire examined colon is normal on direct and retroflexion views. - No specimens collected. Recommendation: - Discharge patient to home. - Resume previous diet. - Continue present medications. - Repeat colonoscopy in 5 years for surveillance. Procedure Code(s): --- Professional --- 25155, Colonoscopy, flexible; diagnostic, including collection of specimen(s) by brushing or washing, when performed (separate procedure) Diagnosis Code(s): --- Professional --- Z12.11, Encounter for screening for malignant neoplasm of colon CPT copyright 2017 [employer]. All rights reserved. The codes documented in this report are preliminary and upon environmental permitting specialist review may be revised to meet current compliance requirements. Thom Hayward MD 12/02/2022 9:28:35 AM This report has been signed electronically. Number of Addenda: 0 Note Initiated On: 12/02/2022 9:01 AM
--- NOTE | 2022-12-02 09:29 | OP.CCLET_ITS ---
12/02/2022 John Robles [address] [place] [address] Re : Colonoscopy procedure for Yoseph Bernardoseamus Dear Dr. Robles This procedure was performed on Friday, December 02, 2022. My impressions and recommendations are as follows: Impressions : - The entire examined colon is normal on direct and retroflexion views. - No specimens collected. Recommendations : - Discharge patient to home. - Resume previous diet. - Continue present medications. - Repeat colonoscopy in 5 years for surveillance. My findings are described in the full procedure note, which is enclosed. If I can be of further assistance, please feel free to contact me at Doctor phone number(s): , Work: . Sincerely, Thom Hayward MD 12/02/2022 9:28:35 AM This report has been signed electronically.
[2022-12-02 09:30] VITALS: BP 104/76; BP 126/66; PULSE 81; RESP 16; TEMP 36.6; O2SAT 96
[2022-12-02 09:35] VITALS: BP 103/74; BP 126/66; PULSE 79; RESP 16; O2SAT 95
[2022-12-02 09:40] VITALS: BP 102/75; BP 126/66; PULSE 73; RESP 16; O2SAT 95
[2022-12-02 09:45] VITALS: BP 109/62; BP 126/66; PULSE 80; RESP 16; TEMP 36.8; O2SAT 96
[2022-12-02 10:06] VITALS: BP 126/66
== END 2022-12-02 10:13 | disposition home or self-care (01) ==
LOC: EN 08:05 → AC 08:05
PROVIDERS: PCP Family Medicine; Referring Provider Family Medicine; Visit Provider Surgery
PROC: 0DJD8ZZ Inspection of Lower Intestinal Tract, Via Natural or Artificial Opening Endoscopic (ICD-10-PCS; CPT 45378; principal; 2022-12-02 08:55)
DX: Z12.11 Encounter for screening for malignant neoplasm of colon (principal); Z87.891 Personal history of nicotine dependence; Z86.010 Personal history of colon polyps; Z80.0 Family history of malignant neoplasm of digestive organs; Z85.51 Personal history of malignant neoplasm of bladder; Z79.899 Other long term (current) drug therapy
CPT/HCPCS: 45378; J7120; J2405

== ENCOUNTER → 2023-04-17 | Outpatient (CLI) | payer BC, SELFPAY ==
[2023-04-17 12:35] LABS: Vitamin D,25 Hydroxy 43.9 ng/mL
[2023-04-17 12:36] LABS: Cholesterol 130 mg/dL (200); High Density Lipoprotein 31 mg/dL; Triglycerides 105 mg/dL; Very Low Density Lipoprotein 21 mg/dL (5-40)
[2023-04-17 12:44] LABS: PTHIN 156.7 pg/mL (18.4-80.1)
== END | disposition home or self-care (01) ==
LOC: MFPLAB 09:35
PROVIDERS: PCP Family Medicine; Visit Provider Family Medicine
DX: N25.81 Secondary hyperparathyroidism of renal origin (principal); Z13.220 Encounter for screening for lipoid disorders
CPT/HCPCS: 36415; 80061; 82306; 83970

== ENCOUNTER → 2023-04-25 | Outpatient (CLI) | payer BC, SELFPAY ==
--- NOTE | 2023-04-25 15:50 | US_ITS ---
EXAM: US SOFT TISSUES HEAD AND NECK, THYROID CLINICAL INDICATION: hyperparathyroidism TECHNIQUE: Grayscale and color doppler imaging was performed of the thyroid gland. COMPARISON: No relevant prior studies available. FINDINGS: LEFT THYROID LOBE: Unremarkable. Mildly heterogeneous echotexture with normal vascularity. No thyroid nodules are present. The left thyroid lobe measures 3.9 x 1.4 x 1.1 cm. RIGHT THYROID LOBE: Unremarkable. Mildly heterogeneous echotexture with normal vascularity. No thyroid nodules are present. The right thyroid lobe measures 4.6 x 1.4 x 1.3 cm. ISTHMUS: Unremarkable. No thyroid nodules are present. The isthmus measures 0.2 cm in thickness. US/Thyroid IMPRESSION: Mildly heterogeneous thyroid bilaterally. No focal thyroid masses . No parathyroid mass identified. Electronically Signed: Alexander Holland MD at 1:26 EST ,
== END | disposition home or self-care (01) ==
LOC: US 15:49
PROVIDERS: PCP Family Medicine; Referring Provider Family Medicine; Visit Provider Family Medicine
DX: N25.81 Secondary hyperparathyroidism of renal origin (principal)
CPT/HCPCS: 76536

== ENCOUNTER → 2024-05-25 | Outpatient (CLI) | payer BC, SELFPAY ==
--- NOTE | 2024-05-25 13:58 | BD_ITS ---
STUDY: DUAL ENERGY X-RAY ABSORPTIOMETRY / DXA REASON FOR EXAM: Male, 68 years old. M810 TECHNIQUE: Bone Mineral Density (BMD) measurements of lumbar spine and bilateral hips were obtained. COMPARISON: September 12, 2021 bone density DEXA scan. FINDINGS: Lumbar Spine (L1-L4): g/cm2 (0.919) / T-score (-1.6) / Z-score (-0.7) Findings are suggestive of osteopenia with a increased fracture risk. Left Femur Total: g/cm2 (1.004) / T-score (-0.2) / Z-score (0.4) Left Femoral Neck: g/cm2 (0.692) / T-score (-1.8) / Z-score (-0.6) Right Femur Total: g/cm2 (0.914) / T-score (-0.8) / Z-score (-0.2) Right Femoral Neck: g/cm2 (0.672) / T-score (-1.9) / Z-score (-0.8) The T-Scores on the most recent prior examination were: Lumbar Spine (L1-L4): There has been slight increase of bone density since the previous examination. BD/Dexa Bone Density Study IMPRESSION: The patient is considered normal Bilateral hips and osteopenic spine as outlined below according to World James Organization (WHO) criteria with a low fracture risk. There has been slight increase of bone density since the previous examination. Reference Information: The T-score is the number of standard deviations above or below the standard which is normal for young adults at their peak bone mineral density. The World Health Organization (WHO) interprets the T-scores as follows: Above -1 Normal bone density Between -1 and -2.5 Osteopenia Equal to / or below -2.5 Osteoporosis As a practical clinical guideline, osteopenia may be graded as follows: Mild -1 through -1.5 Moderate -1.6 through -2.0 Severe -2.1 through -2.4 The Z-score is the number of standard deviations above or below age-matched controls. A Z-score of less than -1.5 would be considered abnormal. References: 1. NIH Osteoporosis and Related Bone Diseases www osteo.org 2. International Society for Clinical Densitometry www iscd.org 3. National Osteoporosis Foundation www nof.org Electronically Signed: Lan Canas MD at 0:00 EST ,
== END | disposition home or self-care (01) ==
PROVIDERS: PCP Family Medicine; Referring Provider Family Medicine; Visit Provider Family Medicine
DX: M85.861 Other specified disorders of bone density and structure, right lower leg (principal); M85.862 Other specified disorders of bone density and structure, left lower leg; M85.88 Other specified disorders of bone density and structure, other site
CPT/HCPCS: 77080

== ENCOUNTER 2025-04-11 08:02 | Outpatient (CLI) | payer MEDICARE, OTHER, SELFPAY ==
[2025-04-11 10:33] LABS: Hematocrit 43.8 % (40-54); Hemoglobin 14.2 g/dL (13.0-16.5); Immature Granulocytes Count 0.020 X10^3/uL (0.0-0.0); Mean Corp Hgb Conc 32.4 g/dL (32-36); Mean Corpuscular Volume 87.1 fL (80-94); Mean Platelet Vol. 9.8 fl (6.2-12.0); NRBC Flagged by Analyzer 0 % (0-5); Platelet Count 279 K/mm3 (150-450); RBC Distribution Width CV 15.0 % (11.6-14.6); RBC Distribution Width SD 47.5 fl (35.1-43.9); Red Blood Count 5.03 M/mm3 (4.6-6.2); White Blood Count 5.6 K/mm3 (4.4-11.0)
[2025-04-11 10:59] LABS: AST(SGOT) 29 U/L (<=37); Alanine Aminotransfer ALT/SGPT 30 U/L (<=46); Albumin, Serum 3.8 g/dL (3.4-4.8); Alkaline Phosphatase 103 U/L (40-129); Anion Gap 11 (5-15); BUN 12 mg/dL (4-19); BUN/Creat Ratio 15.7 RATIO (10-20); Calcium,Total 8.7 mg/dL (7.6-11.0); Carbon Dioxide 20.8 mmol/L (21.0-32.0); Chloride 108 mmol/L (98-108); Globulin 2.4 g/dL (2.2-4.2); Glucose 92 mg/dL (70-99); Potassium 4.1 mmol/L (3.3-5.1)
[2025-04-11 11:12] LABS: PSA,Total- Diagnostic < 0.02 ng/mL (0.00-4.00)
[2025-04-12 09:11] LABS: Vitamin D,25 Hydroxy 41.5 ng/mL (30-100)
== END 2025-04-11 23:59 | disposition home or self-care (01) ==
LOC: MTLAB 08:05
PROVIDERS: PCP Family Medicine; Referring Provider Family Medicine; Visit Provider Family Medicine
DX: N25.81 Secondary hyperparathyroidism of renal origin (principal); Z85.46 Personal history of malignant neoplasm of prostate; M81.0 Age-related osteoporosis without current pathological fracture; E03.9 Hypothyroidism, unspecified
CPT/HCPCS: 36415; 80053; 82306; 84153; 84439; 84443; 85025

== ENCOUNTER → 2025-05-02 | Outpatient (CLI) | payer MEDICARE, OTHER, SELFPAY ==
[2025-05-02 10:56] LABS: Free T3 2.8 pg/mL (2.18-3.98)
== END | disposition home or self-care (01) ==
LOC: MTLAB 08:28
PROVIDERS: PCP Family Medicine; Referring Provider Family Medicine; Visit Provider Family Medicine
DX: E03.9 Hypothyroidism, unspecified (principal)
CPT/HCPCS: 36415; 84439; 84481